=== PATIENT | male | born 1950 | race Two or more races ===

== ENCOUNTER 2021-03-29 12:51 | Emergency (ER) | payer MEDICARE, SELFPAY ==
--- NOTE | 2021-03-29 | ECG_ITS ---
Test Reason : HYPERTENSION Blood Pressure : / mmHG Vent. Rate : 071 BPM Atrial Rate : 071 BPM P-R Int : 132 ms QRS Dur : 070 ms QT Int : 392 ms P-R-T Axes : 085 038 071 degrees QTc Int : 425 ms Normal sinus rhythm Normal ECG When compared with ECG of 27-NOV-2018 01:11, No significant change was found Referred By: Generic ED Physician Electronically Signed By:WEN FERNANDEZ MD
--- NOTE | ~2021-03-29 | XR_ITS ---
EXAMINATION: XR CHEST, 2 VIEWS CLINICAL INFORMATION: Dizziness COMPARISON: 11/27/2018 TECHNIQUE: PA and lateral views of the chest were obtained. FINDINGS: Lungs are hyperexpanded. There is flattening of the hemidiaphragms. Cardiac and mediastinal contours are normal. No consolidation, pneumothorax, or pleural effusion. Pulmonary vasculature appears normal. Mild degenerative spondylosis in the thoracic spine. No acute osseous findings. XR/XR chest 2V IMPRESSION: No acute cardiopulmonary findings.
--- NOTE | ~2021-03-29 | CT_ITS ---
EXAMINATION: CT HEAD WITHOUT CONTRAST CLINICAL INFORMATION: Dizziness COMPARISON: 11/27/2018 TECHNIQUE: Contiguous axial imaging was performed from the skull base to vertex without intravenous administration of contrast. This CT examination was performed using dose optimization techniques as appropriate, variously including the following: *Automated exposure control *Adjustment of mA and/or kV according to patient size (this includes techniques or standardized protocols for targeted exams where dose is matched to indication/reason for exam; i.e. extremities or head) *Use of iterative reconstruction technique DLP: 670 mGy-cm FINDINGS: There is no evidence of acute intracranial hemorrhage or territorial infarction. No abnormal mass effect or midline shift is seen. Su to white matter differentiation is well preserved. No extra-axial fluid collections are identified. Mild enlargement of the ventricles, sulci, and extra-axial CSF spaces is indicative of parenchymal volume loss. There is no abnormal attenuation within the brain parenchyma. The osseous structures and soft tissues are normal. The mastoid air cells and visualized portions of the paranasal sinuses are well aerated. CT/CT head/brain wo con IMPRESSION: No acute intracranial pathology.
[2021-03-29 14:18] VITALS: BP 185/148; PULSE 70; RESP 16; TEMP 36.7; O2SAT 96; BMI 21.6
--- NOTE | 2021-03-29 20:51 | ECG_ITS ---
Test Reason : hypertension Blood Pressure : / mmHG Vent. Rate : 069 BPM Atrial Rate : 069 BPM P-R Int : 138 ms QRS Dur : 072 ms QT Int : 390 ms P-R-T Axes : 082 042 076 degrees QTc Int : 417 ms Normal sinus rhythm Normal ECG When compared with ECG of 29-MAR-2021 15:07, No significant change was found Referred By: Shama Hamilton Electronically Signed By:WEN FERNANDEZ MD
--- NOTE | 2021-03-29 20:53 | ED_ITS ---
HPI - General Adult General Chief complaint: General Medical Stated complaint: high bp, fall Time Seen by Provider: 03/29/21 20:47 Source: patient Mode of arrival: ambulatory Limitations: no limitations History of Present Illness HPI narrative: 71-year-old male with a history of high blood pressure on 25 mg of atenolol daily, COPD, high cholesterol here with reports of elevated blood pressure since Tuesday of last week. Patient tells me he has a longstanding history of high blood pressure and has been on atenolol for several years. He has been taking as prescribed. There has been no changes in his medication dosages. Tells me that he takes his blood pressure every day. Last Tuesday he noticed his blood pressure was running high and it has been running high every day since then. He does feel fatigued and slightly dizzy. He denies any headache, vision changes, vomiting, chest pain, difficulty breathing. Related Data Previous Rx's Medication Instructions Recorded amlodipine 10 mg tablet (Norvasc) 10 mg PO DAILY #30 tab 03/29/21 Allergies Allergy/AdvReac Type Severity Reaction Status Date / Time No Known Allergies Allergy Verified 03/29/21 14:18 [No Known Allergies*] Review of Systems Review of Systems: Yes all other systems are reviewed and are negative Constitutional: Constitutional: Reports no additional constitutional complaints, Denies body ache(s), Denies chills, Reports fatigue, Denies fever(s), Denies headache(s) and Denies weakness Eyes: Eyes: Reports no additional eye complaints and Denies change in vision ENT: Reports system reviewed and no additional complaints, except as documented, Reports dizziness, Denies headache(s), Denies nasal congestion, Denies nasal discharge and Denies neck pain Cardiovascular: Cardiovascular: Reports no additional cardiovascular complaints, Denies chest pain, Denies leg edema and Denies dyspnea Respiratory: Respiratory: Reports no additional respiratory complaints, Denies cough and Denies dyspnea Gastrointestinal: Gastrointestinal: Reports no additional gastrointestinal complaints, Denies abdominal pain, Denies diarrhea, Denies nausea and Denies vomiting Genitourinary: Genitourinary: Denies urinary incontinence Musculoskeletal: Musculoskeletal: Reports no additional musculoskeletal complaints, Denies back pain, Denies arthralgias, Denies joint swelling, Denies neck pain, Denies numbness and Denies tingling Integumentary/Breasts: Skin/Breast: Reports system reviewed and no additional complaints, except as docu and Denies rash Neurologic: Reports system reviewed and no additional complaints, except as documented, Denies Abnormal speech present, Reports dizziness, Denies headache(s), Denies numbness, Denies tingling and Denies weakness Endocrine: Endocrine: Reports fatigue [facility] Past Medical History Attestation statement: The following information was validated with the patient. Source: old records reviewed and nursing notes reviewed Medical History COPD (chronic obstructive pulmonary disease) HTN (hypertension) Hypercholesteremia Social History Social History Patient Tobacco Use Status: Former Tobacco user Smoked in Last 30 Days: No Use of substances other than those prescribed or required for medical reasons: No Advance Directives: No Advance Directives Information Provided: Yes Physical Exam Vital Signs: Vital Signs: Last Vital Signs Temp 97.9 F 03/29/21 22:18 Pulse 82 03/29/21 23:19 Resp 15 03/29/21 22:18 BP 167/78 H 03/29/21 23:19 Pulse Ox 92 03/29/21 22:18 BMI result Body Mass Index 21.6 Const: General: cooperative, healthy appearing, comfortable and no acute distress Orientation/consciousness: patient oriented x3 Limitations: no limitations HENMT: Head: Yes normal to inspection Ears: hearing grossly normal bilaterally and TM's normal bilaterally General nose exam: Normal external nose present Face and sinus: Yes normal facial exam Mouth: Normal oral and palatal mucosa present Throat: Yes posterior oropharynx normal Eyes: General: appearance normal, both eyes and all related structures Pupils: Equal, round and reactive pupils present Neck: Neck: Yes normal visual inspection, Yes full ROM and Yes no lymphadenopathy Chest: Chest palpation & inspection: normal inspection of the chest Resp: Effort & Inspection: normal respiratory effort Auscultation: clear to auscultation bilaterally Cardio: Rate: regular rate Rhythm: regular rhythm Peripheral pulses: P eripheral pulses 2+ throughout GI: Inspection: Yes normal to inspection Palpation (GI): Soft to palpation and nontender Auscultation: normal bowel sounds Back/Spine/Pelvis: Thoracic/Lumbar Spine: thoracic and lumbar spine normal to inspection Skin: General skin exam: no rashes or lesions noted Neuro: General: patient oriented x3, no focal motor deficits and normal sensation to monofilament Cranial nerves: Yes CN's II-XII intact bilaterally, Yes Equal, round and reactive pupils present, Yes Bilaterally intact EOM present, Yes Nystagmus not present, Yes Normal facial strength present and Yes Midline tongue present Cognition (Neuro): normal cognition Speech: No Abnormal speech present Gait exam (Neuro): Normal gait present Motor exam (neuro): 5/5 motor strength present throughout Sensory Exam: Normal double simultaneous stimulation for sensation Coordination: [id number] test normal, [id number] test normal and tandem gait normal Extrem: General: Yes normal to inspection, Yes no pedal edema and Yes no calf tenderness Course Course Course Narrative: 71-year-old male with a history of hypertension on 25 mg of atenolol daily here with reports of high blood pressure noted at home on a home monitor for the last 1 week. Patient complaining of feeling fatigued and slightly dizzy. Normal neuro exam. On arrival patient's blood pressure is 225/105. Check labs, EKG, chest x-ray, po norvasc, NTG paste 2320-blood pressure now 167/78. Patient feeling improved. Labs including trop onin are unremarkable. Chest x-ray, CT head are negative. EKG shows no ischemic changes. Patient is feeling improved with improvement of blood pressure. Will start him on Norvasc home. Reviewed worrisome signs and symptoms of when to return to the emergency department. Comfortable discharge home. Medical Decision Making Medical Records Medical records reviewed: Yes I reviewed the patient's medical records. Lab Data Lab results reviewed: Yes I reviewed the patient's lab results. Result diagrams: 03/29/21 21:27 03/29/21 21:27 Labs: Lab Results 03/29/21 03/29/21 03/29/21 Range/Units 21:27 21:27 21:27 WBC 7.1 (4.8-10.8) X10*3/uL RBC 5.21 (4.60-5.80) X10*6/uL Hgb 16.5 (14.0-18.0) g/dl Hct 49.0 (42.0-52.0) % MCV 94.0 (80.0-98.0) fL MCH 31.7 (27.0-33.0) pg MCHC 33.7 (31.0-36.0) g/dl RDW 12.5 (11.0-16.0) % Plt Count 239 (160-400) X10*3/uL MPV 10.2 (9.4-12.4) fL Immature Gran % (Auto) 0.1 (0.0-0.4) % Neut % (Auto) 55.9 (45-73) % Lymph % (Auto) 18.5 L (20-40) % [place] % (Auto) 13.7 H (2-11) % Eos % (Auto) 11.2 H (0-4) % Baso % (Auto) 0.6 (0-2) % Lymph # (Auto) 1.3 (1.2-4.9) X10*3/uL [place] # (Auto) 1.0 (0.1-1.2) X10*3/uL Eos # (Auto) 0.8 H (0.0-0.4) X10*3/uL Baso # (Auto) 0.0 (0.0-0.2) X10*3/uL Abs Immat Gran (auto) 0.01 (0.00-0.03) X10*3/uL Absolute Neuts (auto) 4.0 (2.0-8.3) x10*3/uL Absolute Nucleated RBC 0.000 (0.0-0.012) X10*3/uL Nucleated RBC % (auto) 0.0 (0.0-0.2) /100WBC Sodium 140 (135-145) mmol/L Potassium 4.3 (3.3-5.1) mmol/L Chloride 102 (96-108) mmol/L Carbon Dioxide 32 H (22-29) mmol/L Anion Gap 10 L (12-20) BUN 11 (9-16) mg/dL Creatinine 0.76 (0.5-1.4) mg/dL Estim Creat Clear Calc 88.6 Estimated GFR > 60 Random Glucose 107 (60-115) mg/dL Calcium 9.6 (8.4-10.2) mg/dL Magnesium 1.7 (1.6-2.6) mg/dL Total Bilirubin 1.2 H (0.0-1.0) mg/dL Direct Bilirubin 0.4 (0.0-0.5) mg/dL AST 28 (5-37) U/L ALT 28 (0-40) U/L Alkaline Phosphatase 64 (39-117) U/L Troponin I High Sens 4.6 (<3.5-35.0) ng/L Total Protein 7.8 (6.5-8.0) g/dL Albumin 4.0 (3.5-5.0) g/dL Urine Color Urine Appearance Urine pH (5.0-8.0) Ur Specific [place] (1.005-1.025) Urine Protein (NEG-TRACE) MG/DL Urine Glucose (UA) (NEG) MG/DL Urine Ketones (NEG) MG/DL Urine Blood (NEG) Urine Nitrite (NEG) Ur Leukocyte Esterase (NEG) 03/29/21 Range/Units 22:59 WBC (4.8-10.8) X10*3/uL RBC (4.60-5.80) X10*6/uL Hgb (14.0-18.0) g/dl Hct (42.0-52.0) % MCV (80.0-98.0) fL MCH (27.0-33.0) pg MCHC (31.0-36.0) g/dl RDW (11.0-16.0) % Plt Count (160-400) X10*3/uL MPV (9.4-12.4) fL Immature Gran % (Auto) (0.0-0.4) % Neut % (Auto) (45-73) % Lymph % (Auto) (20-40) % [place] % (Auto) (2-11) % Eos % (Auto) (0-4) % Baso % (Auto) (0-2) % Lymph # (Auto) (1.2-4.9) X10*3/uL [place] # (Auto) (0.1-1.2) X10*3/uL Eos # (Auto) (0.0-0.4) X10*3/uL Baso # (Auto) (0.0-0.2) X10*3/uL Abs Immat Gran (auto) (0.00-0.03) X10*3/uL Absolute Neuts (auto) (2.0-8.3) x10*3/uL Absolute Nucleated RBC (0.0-0.012) X10*3/uL Nucleated RBC % (auto) (0.0-0.2) /100WBC Sodium (135-145) mmol/L Potassium (3.3-5.1) mmol/L Chloride (96-108) mmol/L Carbon Dioxide (22-29) mmol/L Anion Gap (12-20) BUN (9-16) mg/dL Creatinine (0.5-1.4) mg/dL Estim Creat Clear Calc Estimated GFR Random Glucose (60-115) mg/dL Calcium (8.4-10.2) mg/dL Magnesium (1.6-2.6) mg/dL Total Bilirubin (0.0-1.0) mg/dL Direct Bilirubin (0.0-0.5) mg/dL AST (5-37) U/L ALT (0-40) U/L Alkaline Phosphatase (39-117) U/L Troponin I High Sens (<3.5-35.0) ng/L Total Protein (6.5-8.0) g/dL Albumin (3.5-5.0) g/dL Urine Color YELLOW Urine Appearance CLEAR Urine pH 6.0 (5.0-8.0) Ur Specific [place] >= 1.030 H (1.005-1.025) Urine Protein NEG (NEG-TRACE) MG/DL Urine Glucose (UA) NEG (NEG) MG/DL Urine Ketones NEG (NEG) MG/DL Urine Blood NEG (NEG) Urine Nitrite NEG (NEG) Ur Leukocyte Esterase NEG (NEG) Imaging Data Chest x-ray: Attestation: I personally reviewed and interpreted this imaging study as follows: Radiologist's impression: [address] [address] XRay Report Signed Patient: Thony Koroma MR#: [id number] : 1950 Acct:[id number] Age/Sex: 71 / M ADM Date: 03/29/21 Loc: .ED Attending Dr: Ordering Physician: Shama Hamilton NP Date of Service: 03/29/21 Procedure(s): XR chest 2V Accession Number(s): [id number] cc: Shama Hamilton NP~ EXAMINATION: XR CHEST, 2 VIEWS CLINICAL INFORMATION: Dizziness COMPARISON: 11/27/2018 TECHNIQUE: PA and lateral views of the chest were obtained. FINDINGS: Lungs are hyperexpanded. There is flattening of the hemidiaphragms. Cardiac and mediastinal contours are normal. No consolidation, pneumothorax, or pleural effusion. Pulmonary vasculature appears normal. Mild degenerative spondylosis in the thoracic spine. No acute osseous findings. XR/XR chest 2V IMPRESSION: No acute cardiopulmonary findings. CT scan - head: Attestation: I personally reviewed and interpreted this imaging study as follows: Radiologist's impression: [address] [address] [address] Scan Report Signed Patient: Thony Koroma MR#: [id number] : 1950 Acct:[id number] Age/Sex: 71 / M ADM Date: 03/29/21 Loc: HO.ED Attending Dr: Ordering Physician: Shama Hamilton NP Date of Service: 03/29/21 Procedure(s): CT head/brain wo con Accession Number(s): [id number] cc: Shama Hamilton NP~ EXAMINATION: CT HEAD WITHOUT CONTRAST CLINICAL INFORMATION: Dizziness? COMPARISON: 11/27/2018 TECHNIQUE: Contiguous axial imaging was performed from the skull base to vertex without intravenous administration of contrast. This CT examination was performed using dose optimization techniques as appropriate, variously including the following: *Automated exposure control *Adjustment of mA and/or kV according to patient size (this includes techniques or standardized protocols for targeted exams where dose is matched to indication/reason for exam; i.e. extremities or head) *Use of iterative reconstruction technique DLP: 670 mGy-cm FINDINGS: There is no evidence of acute intracranial hemorrhage or territorial infarction. No abnormal mass effect or midline shift is seen. Su to white matter differentiation is well preserved. No extra-axial fluid collections are identified. Mild enlargement of the ventricles, sulci, and extra-axial CSF spaces is indicative of parenchymal volume loss. There is no abnormal attenuation within the brain parenchyma. The osseous structures and soft tissues are normal. The mastoid air cells and visualized portions of the paranasal sinuses are well aerated. ? CT/CT head/brain wo con IMPRESSION: No acute intracranial pathology. ECG Data Attestation: I personally reviewed and interpreted this ECG as follows: Interpretation: Normal sinus rhythm the rate of 69, normal CT, normal QRS, normal QT Discharge Plan Discharge Clinical Impression: Hypertension Patient Disposition: Home, Self-Care Instructions: Hypertension (ED) Additional Instructions: Start your new blood pressure medication tomorrow. Still take your atenolol Follow-up with primary care doctor Prescriptions: New amlodipine [Norvasc] 10 mg tablet 10 mg PO DAILY Qty: 30 RF: 0 Referrals: Valeriano Brewer MD [Primary Care Provider] - 2 days Interventions: ED Discharge Assessment Last Done: 03/29/21 23:54
[2021-03-29 21:21] VITALS: BP 205/98; PULSE 76; RESP 14; TEMP 36.8; O2SAT 96
[2021-03-29 21:31] LABS: MANUAL DIFF FLAG NO
[2021-03-29 21:33] VITALS: BP 205/98; PULSE 71
[2021-03-29] MEDS: amLODIPine Besylate 10 MG TABLET PO (21:33)
[2021-03-29] MEDS: Nitroglycerin 2 % Oint 1 GM Packet 1 INCH TRANSDERMA (21:34)
[2021-03-29 21:35] LABS: Basophils Percent Auto 0.6 % (0-2); Eosinophils Absolute Auto 0.8 X10*3/uL (0.0-0.4); Eosinophils Percent Auto 11.2 % (0-4); Hemoglobin 16.5 g/dl (14.0-18.0); Imm Gran Abs Auto 0.01 X10*3/uL (0.00-0.03); Imm Gran Pct Auto 0.1 % (0.0-0.4); Lymphocytes Absolute Auto 1.3 X10*3/uL (1.2-4.9); Lymphocytes Percent Auto 18.5 % (20-40); Mean Corpuscular HGB Conc 33.7 g/dl (31.0-36.0); Mean Corpuscular Hemoglobin 31.7 pg (27.0-33.0); Mean Platelet Volume 10.2 fL (9.4-12.4); Monocytes Percent Auto 13.7 % (2-11); Neutrophils Percent Auto 55.9 % (45-73); Platelet Count 239 X10*3/uL (160-400); Red Blood Count 5.21 X10*6/uL (4.60-5.80); Red Cell Distribution Width 12.5 % (11.0-16.0); White Blood Count 7.1 X10*3/uL (4.8-10.8)
[2021-03-29 21:53] LABS: Alanine Aminotransferase 28 U/L (0-40); Alkaline Phosphatase 64 U/L (39-117); Anion Gap 10 (12-20); Aspartate Amino Transferase 28 U/L (5-37); Bilirubin Direct 0.4 mg/dL (0.0-0.5); Bilirubin Total 1.2 mg/dL (0.0-1.0); Blood Urea Nitrogen 11 mg/dL (9-16); Calcium 9.6 mg/dL (8.4-10.2); Carbon Dioxide 32 mmol/L (22-29); Chloride 102 mmol/L (96-108); Creatinine Clr Calc Pharmacy 88.6; Estimated Glomerular Filt Rate > 60; Glucose Random 107 mg/dL (60-115); Magnesium 1.7 mg/dL (1.6-2.6); Potassium 4.3 mmol/L (3.3-5.1); Sodium 140 mmol/L (135-145); Total Protein 7.8 g/dL (6.5-8.0)
[2021-03-29 21:54] LABS: Troponin-I High Sensitivity 4.6 ng/L (<3.5-35.0)
[2021-03-29 22:18] VITALS: BP 174/97; PULSE 75; RESP 15; TEMP 36.6; O2SAT 92
[2021-03-29 23:05] LABS: Appearance Urine CLEAR; Color Urine YELLOW; Glucose Urine UA NEG (NEG); Leukocyte Esterase Urine NEG (NEG); Nitrite Urine NEG (NEG); Specific Gravity - Urine >= 1.030 (1.005-1.025); Urine Blood NEG (NEG); Urine Ketones NEG (NEG); Urine Protein NEG (NEG-TRACE)
[2021-03-29 23:19] VITALS: BP 167/78; PULSE 82
== END 2021-03-30 00:07 | disposition home or self-care (01) ==
PROVIDERS: Nurse Practitioner Family; Emergency Provider Internal Medicine; PCP Internal Medicine
DX: I10 Essential (primary) hypertension (principal); R42 Dizziness and giddiness; J44.9 Chronic obstructive pulmonary disease, unspecified; Z79.899 Other long term (current) drug therapy
CPT/HCPCS: 36415; 70450; 71046; 80048; 80076; 81003; 83735; 84484; 85025; 93005; 99284

== ENCOUNTER → 2021-06-18 14:30 | Outpatient (BNVA) | payer MEDICARE, SELFPAY | PROVIDERS: PCP Internal Medicine Geriatric Medicine; Referring Provider Internal Medicine Geriatric Medicine; Visit Provider Surgery | DX: K40.90 Unilateral inguinal hernia, without obstruction or gangrene, not specified as recurrent (principal) | CPT/HCPCS: 99202 ==

== ENCOUNTER 2021-08-07 07:35 | Day surgery (SDC) | payer MEDICARE, SELFPAY ==
--- NOTE | 2021-08-06 10:49 | HO.ANESPROP2 ---
Documented by User: Susan Salinas NP 08/06/21 10:50 HPI - Anesthesia Eval Consult details Narrative: 71yo M for Right Hernia Repair Inguinal PMFSH Active Problems Active Problems: All Active Problems (Updated 06/18/21 @ 14:57 by Perry Linton MD) Right inguinal hernia (Acute) Past Medical History Medical History (Updated 06/18/21 @ 14:57 by Perry Linton MD) COPD (chronic obstructive pulmonary disease) HTN (hypertension) Hypercholesteremia Right inguinal hernia Surgical History Surgical History History of cataract surgery History of colon surgery History of hip surgery Social History Social History Patient Tobacco Use Status: Former Tobacco user Quit Date: 2009 Tobacco use type: Cigarette Smoked in Last 30 Days: No Use of substances other than those prescribed or required for medical reasons: No Are you DNR?: No Advance Directives: No Advance Directives Information Provided: Yes Meds Allergies Allergy/AdvReac Type Severity Reaction Status Date / Time No Known Allergies Allergy Verified 08/07/21 08:33 [No Known Allergies*] Home Medications Medication Instructions Recorded Confirmed Last Taken Type atenolol 25 mg tablet 25 mg PO DAILY 06/18/21 06/18/21 08/07/21 07:00 History budesonide-formoterol HFA 80 INHALATION 06/18/21 06/18/21 08/07/21 07:00 History mcg-4.5 mcg/actuation aerosol inhaler (Symbicort) clotrimazole 1 % topical cream appl TOPICAL BID 06/18/21 06/18/21 Unknown History latanoprost 0.005 % eye drops 0 drp OPHTHALMIC (EYE) 06/18/21 06/18/21 Unknown History naproxen 500 mg tablet 500 mg PO BID 06/18/21 06/18/21 Unknown History umeclidinium 62.5 mcg/actuation 1 inh INHALATION DAILY 06/18/21 06/18/21 Unknown History blister powder for inhalation (Incruse Ellipta) Pepcid 08/07/21 08/07/21 08/07/21 07:00 History Exam Exam Date and Time: August 06, 2021 1049 Height,Weight and Vital Signs: Weight 67.132 kg Pertinent Lab Results Pertinent Lab Results: Laboratory Tests 03/29/21 03/29/21 21:27 21:27 WBC 7.1 Hgb 16.5 Hct 49.0 Plt Count 239 Sodium 140 Potassium 4.3 Chloride 102 Carbon Dioxide 32 H BUN 11 Creatinine 0.76 Narrative Narrative: EKG 03/2021 Vent. Rate : 069 BPM ? ? Atrial Rate : 069 BPM ?? P-R Int : 138 ms? QRS Dur : 072 ms ? ? QT Int : 390 ms ? ? ? P-R-T Axes : 082 042 076 degrees ?? QTc Int : 417 ms ? Normal sinus rhythm Normal ECG When compared with ECG of 29-MAR-2021 15:07, No significant change was found Assessment and Plan Assessment Anesthesia Assessment: Chart Reviewed Documented by User: Destiney Hernandez MD 08/07/21 08:49 [facility] Past Medical History Medical History (Updated 06/18/21 @ 14:57 by Perry Linton MD) COPD (chronic obstructive pulmonary disease) HTN (hypertension) Hypercholesteremia Right inguinal hernia Family History Family history of problems with anesthesia: No Surgical History Surgical History History of cataract surgery History of colon surgery History of hip surgery History of Problems with Anesthesia: No Social History Social History Patient Tobacco Use Status: Former Tobacco user Quit Date: 2009 Tobacco use type: Cigarette Smoked in Last 30 Days: No Use of substances other than those prescribed or required for medical reasons: No Are you DNR?: No Advance Directives: No Advance Directives Information Provided: Yes Meds Allergies Allergy/AdvReac Type Severity Reaction Status Date / Time No Known Allergies Allergy Verified 08/07/21 08:33 [No Known Allergies*] Home Medications Medication Instructions Recorded Confirmed Last Taken Type atenolol 25 mg tablet 25 mg PO DAILY 06/18/21 06/18/21 08/07/21 07:00 History budesonide-formoterol HFA 80 INHALATION 06/18/21 06/18/21 08/07/21 07:00 History mcg-4.5 mcg/actuation aerosol inhaler (Symbicort) clotrimazole 1 % topical cream appl TOPICAL BID 06/18/21 06/18/21 Unknown History latanoprost 0.005 % eye drops 0 drp OPHTHALMIC (EYE) 06/18/21 06/18/21 Unknown History naproxen 500 mg tablet 500 mg PO BID 06/18/21 06/18/21 Unknown History umeclidinium 62.5 mcg/actuation 1 inh INHALATION DAILY 06/18/21 06/18/21 Unknown History blister powder for inhalation (Incruse Ellipta) Pepcid 08/07/21 08/07/21 08/07/21 07:00 History Exam Height,Weight and Vital Signs: Height 5 ft 11 in Weight 68.039 kg Airway Mallampati Class: II TM Dist: >3cm Neck ROM: Full Loose/Missing/Broken Teeth: Yes (Broken back right, some missing) Heart: RRR Lungs: CTAB. No wheezes Assessment and Plan Assessment Anesthesia Assessment: Anesthesia Plan Discussed Final Anesthetic Review Family History of Problems with Anesthesia: No History of Problems with Anesthesia: No NPO: Yes ASA Class: II Final Preanesthetic Review: No Changes in Pt Med Stat, Meds/Allgs Chart Reviewed, Consent Obtained/Reviewed and Anes Risks/Benef Reviewed Patient Risk: Low Procedure Risk: Low Assessment/Block/Sedation in SS: Assess/Block/Sedation-SS Anesthetic Plan Anesthetic Plan: MAC: Disposition: Standard PACU
[2021-08-07] VITALS (9 sets, daily range): BP systolic 130–172; BP diastolic 56–87; PULSE 54–73; RESP 16–18; TEMP 36.2–36.8; O2SAT 96–100; BMI 20.9
[2021-08-07] MEDS: Lactated Ringers 1,000 ML 100 ML IVCONT (08:47)
--- NOTE | 2021-08-07 09:06 | MHC.SHP ---
Pre-Procedural Eval Section A Date of Service: 08/07/21 Section B Chief Complaint: Unilateral inguinal hernia, Details of Present Illness: has had the reducible right inguinal hernia more than 2 years Relevant Family History (Specify if Yes): No Relevant Social History: Tobacco Use Present Medications: see Short Stay Collaborative assessment Medical History: Significant History ( ex-smoker, hypertension) History of Previous Operations: No relevant previous surgery Allergies: Allergies Allergy/AdvReac Type Severity Reaction Status Date / Time No Known Allergies Allergy Verified 08/07/21 08:33 [No Known Allergies*] Review of Systems Sugical H&P ROS: Negative: Constitution, Cardiovascular, Respiratory, Neurological, Psychiatric, Hem-Onc, Allergic/Immunologic, Gastrointestinal, Genitourinary, Musculoskeletal, Integumentary, Endocrine and Eyes/Ears/Nose/Throat Exam Surgical H&P Exam: Normal: HEENT, Normal: Heart, Normal: Lungs, Normal: Extremities, Normal: Skin and Normal: Neurological and Significant Findings: Abdomen ( reducible right inguinal hernia) Plan Diagnosis/Plan: Unchanged I have reviewed the history and physical and performed a pertinent physical examination on my patient. No changes have occurred unless specified.
--- NOTE | 2021-08-07 10:07 | P.OP_ITS ---
Operative Note Operative Note Date of Service: 08/07/21 Narrative: Preop diagnosis: Inguinal hernia Postop diagnosis: Right inguinal hernia, direct Procedure: Repair of right inguinal hernia with mesh and plug Surgeon: Perry Linton MD insurance claims assistant: LAZARO Mckenzie The patient is a 71-year-old male with a reducible mass in the right groin consistent with a right inguinal hernia. He understood the technique of repair with mesh. He was aware of the risks, benefits, and alternatives He was brought to the operating room. he was placed supine under general anesthesia via laryngeal mask airway. the right groin was prepped and draped in the usual sterile fashion. A surgical time-out was done. The patient received cefazolin 2 g IV preoperatively I infiltrated the planned line of incision with lidocaine 1%. I made a short incision on the skin along an imaginary line from the anterior superior iliac spine to the pubic ramus using a blade 15. This was carried down with electrocautery through the full-thickness of the skin subcutaneous fat down to the fascia. I bluntly dissected the external oblique aponeurosis until was able to clearly define the external ring. Made an incision on the aponeurosis overlying the ring using blade 15 and this was extended inferomedially to connect with the external ring itself using an open tipped pair of scissors. I applied hemostats at the edges of the divided aponeurosis. I bluntly dissected the underside of the aponeurosis to create a pocket for the mesh. I bluntly dissected the spermatic cord and its contents until was able to pass a Marlene drain around this. This Ball Ground drain was used for traction. Identified the vas deferens and the accompanying vessels. I was able to identify the sac and this was easily from the rest of the cord contents. The sac was actually through the floor of the canal so this was a direct hernia. I reinforced defect with a large-sized Prolene plug. The plug was secured Prolene 2 sutures to the shelving edge of the inguinal meant laterally and the area of leak medially and superiorly using Prolene 2 sutures to the inner leaves of the plug. I reinforced the floor of the canal with a keyhole mesh. The tails of the mesh were passed around the cord at the level of the internal ring and were secured together with Prolene 2 sutures. I then proceeded to flattened the mesh on the floor of the canal. This was secured with Prolene 2 sutures as well to the shelving edge of the inguinal and laterally, internal oblique superiorly and medially as well as the pubic ramus inferomedially. We observed for hemostasis. Once hemostasis was ensured, I proceeded to then apply viscus meloxicam/bupivacaine to the underside of the aponeurosis. I closed the aponeurosis with a running Dexon 2-0 stitch to re-create the external ring. I then more viscous meloxicam /bupivacaine above the closed aponeurosis. I reapposed the cutaneous layer with Dexon 3-0 interrupted sutures. Skin closure was achieved with Dexon 4-0 subcuticular running stitch. The area was infiltrated with Marcaine 0.5% for postop analgesia. Steri-Strips and dressings were applied. The procedure was completed The patient tolerated procedure well. There were no complication noted. Initial and final counts of sponges and instruments were correct. Estimated blood loss was less than 5 cc The patient was extubated without difficulty and transferred to the [facility] with stable vital signs.
[2021-08-07] MEDS: Acetaminophen 325 MG TABLET 650 MG PO (10:58)
== END 2021-08-07 12:05 | disposition home or self-care (01) ==
PROVIDERS: PCP Internal Medicine; Visit Provider Surgery
PROC: (CPT 49505; principal; 2021-08-07 09:20)
DX: K40.90 Unilateral inguinal hernia, without obstruction or gangrene, not specified as recurrent (principal); I10 Essential (primary) hypertension; J44.9 Chronic obstructive pulmonary disease, unspecified; E78.00 Pure hypercholesterolemia, unspecified; Z79.899 Other long term (current) drug therapy; Z87.891 Personal history of nicotine dependence
CPT/HCPCS: 49505; C1781; C9088; C9399; J0690; J1100; J2370; J2405; J3010

== ENCOUNTER → 2021-08-19 11:05 | Outpatient (BNVA) | payer MEDICARE, SELFPAY | PROVIDERS: PCP Internal Medicine Geriatric Medicine; Referring Provider Internal Medicine Geriatric Medicine; Visit Provider Surgery | DX: Z48.815 Encounter for surgical aftercare following surgery on the digestive system (principal); Z87.19 Personal history of other diseases of the digestive system | CPT/HCPCS: 99212 ==

== ENCOUNTER 2022-03-04 11:26 | Emergency (ER) | payer MEDICARE, SELFPAY ==
--- NOTE | ~2022-03-04 | XR_ITS ---
EXAMINATION: XR CHEST CLINICAL INFORMATION: Shortness of breath COMPARISON: 03/29/2021 TECHNIQUE: Frontal view of the chest was obtained. FINDINGS: Again seen is marked hyperexpansion of the lungs compatible with COPD. Heart size normal. No infiltrates effusions or lung masses are seen. Prominent interstitial markings at the lung bases I suspect represents some bronchiectasis. No focal consolidations lung masses or effusions. XR/XR chest 1V IMPRESSION: COPD. No acute intrathoracic disease.
[2022-03-04 11:32] VITALS: BP 172/82; PULSE 104; O2SAT 88
--- NOTE | 2022-03-04 11:32 | ED.GENADULT ---
HPI - General Adult General Chief complaint: Dyspnea Stated complaint: sob per ems Time Seen by Provider: 03/04/22 11:32 Source: patient, family (daughter) and EMS Mode of arrival: EMS Limitations: no limitations History of Present Illness HPI narrative: Patient is a 72 year old assigned male at with a history of COPD presenting to the emergency department today with a persistent cough and mild SOB. Patient states that over the last week he has had worsening shortness of breath and a cough. Patient denies any dizziness, lightheadedness, abdominal pain, nausea, vomiting, fever, chills, blurry vision, double vision, loss of vision, chest pain, back pain, night sweats, pain with urination, increased urinary frequency, increased urinary urgency, blood in his urine or stool, syncope or a near syncopal episode, recent trauma or falls, bowel incontinence, bladder incontinence, bowel retention, bladder retention, or any other complaints at this time. Onset (ago): week(s) (1) Severity: mild Severity scale (1-10): 3 Relieving factors: none Exacerbating factors: none Associated symptoms: cough and shortness of breath Treatments prior to arrival: none Related Data Home Medications Medication Instructions Recorded Confirmed atenolol 25 mg tablet 25 mg PO DAILY 06/18/21 06/18/21 budesonide-formoterol HFA 80 inhalation 06/18/21 06/18/21 mcg-4.5 mcg/actuation aerosol inhaler (Symbicort) clotrimazole 1 % topical cream appl topical BID 06/18/21 06/18/21 latanoprost 0.005 % eye drops 0 drp ophthalmic (eye) 06/18/21 06/18/21 umeclidinium 62.5 mcg/actuation 1 inh inhalation DAILY 06/18/21 06/18/21 blister powder for inhalation (Incruse Ellipta) Pepcid 08/07/21 08/07/21 Previous Rx's Medication Instructions Recorded amlodipine 10 mg tablet (Norvasc) 10 mg PO DAILY #30 tabs 03/29/21 oxycodone-acetaminophen 5 mg-325 1 tab PO Q4-6H PRN pain, severe 08/07/21 mg tablet (Percocet) #30 tabs doxycycline hyclate 100 mg tablet 100 mg PO BID 7 days #14 tabs 03/04/22 prednisone 20 mg tablet 20 mg PO DAILY 7 days #7 tabs 03/04/22 Allergies Allergy/AdvReac Type Severity Reaction Status Date / Time No Known Allergies Allergy Verified 08/19/21 11:22 [No Known Allergies*] Review of Systems Constitutional: Constitutional: Reports no additional constitutional complaints, Denies chills, Denies fever(s) and Denies night sweats Eyes: Eyes: Reports no additional eye complaints, Denies blurry vision, Denies change in vision, Denies diplopia, Denies eye discharge, Denies loss of vision and Denies eye pain ENT: Denies dizziness Cardiovascular: Cardiovascular: Reports no additional cardiovascular complaints, Denies chest pain, Denies lightheadedness, Denies Loss of Consciousness and Reports dyspnea Respiratory: Respiratory: Reports no additional respiratory complaints, Reports cough and Reports dyspnea Gastrointestinal: Gastrointestinal: Reports no additional gastrointestinal complaints, Denies abdominal pain, Denies melena, Denies hematochezia, Denies change in bowel habits and Denies change in stool character Genitourinary: Genitourinary: Reports no additional male genitourinary complaints, Denies hematuria, Denies oliguria, Denies difficulty urinating, Denies dysuria, Denies urinary frequency, Denies urinary hesitancy, Denies urinary incontinence and Denies urinary urgency Musculoskeletal: Musculoskeletal: Reports no additional musculoskeletal complaints, Denies numbness and Denies tingling Neurologic: Denies dizziness, Denies loss of vision, Denies numbness and Denies tingling Psychiatric: Psychiatric: Reports no additional psychiatric complaints Endocrine: Endocrine: Reports no additional endocrine complaints Hematologic/Lymphatic: Hematologic/Lymphatic: Reports no additional hematologic/lymphatic complaints Allergic/Immunologic: Allergic/Immunologic: Reports no additional allergic/immunologic complaints [facility] Past Medical History Attestation statement: The following information was validated with the patient. Source: old records reviewed, obtained from family (patient's daughter) and nursing notes reviewed Medical History COPD (chronic obstructive pulmonary disease) HTN (hypertension) Hypercholesteremia Right inguinal hernia Surgical History History of cataract surgery History of colon surgery History of hip surgery History of right inguinal hernia repair Social History Social History Alcohol intake: current Alcohol intake frequency: holidays/special occasions only Patient Tobacco Use Status: Former Tobacco user Quit Date: 2009 Tobacco use type: Cigarette Smoked in Last 30 Days: No Use of substances other than those prescribed or required for medical reasons: No Advance Directives: No Advance Directives Information Provided: Yes Physical Exam ED Vital Signs: Vital Signs - 24 hr 03/04/22 11:37 03/04/22 12:35 03/04/22 14:00 Temperature 98.2 F 98.7 F 98.7 F Pulse Rate 96 88 86 Respiratory Rate 16 20 16 Blood Pressure 143/82 H 127/57 L 124/73 Pulse Oximetry 96 91 L 97 Oxygen Delivery Method Room Air Nasal Cannula Room Air Oxygen Flow Rate 2 BMI result Body Mass Index 20.9 Const General: cooperative, no acute distress, alert and awake Nutritional Appearance: well nourished Orientation/consciousness: patient oriented x3 Limitations: no limitations HENMT Head: Yes normal to inspection and Yes atraumatic Ears: hearing grossly normal bilaterally and external ears normal General nose exam: Normal external nose present, no nasal discharge noted and no epistaxis Face and sinus: Yes normal facial exam, No abrasion and No laceration Mouth: Normal oral and palatal mucosa present, no drooling and no muffled voice Eyes General: appearance normal, both eyes and all related structures Periorbital: periorbital findings normal Eyelids: Yes eyelids normal Conjunctivae: conjunctivae normal Pupils: Equal, round and reactive pupils present EOM: EOMs intact bilaterally Neck Neck: Yes normal visual inspection, Yes full ROM and Yes no lymphadenopathy Chest Chest palpation & inspection: normal inspection of the chest Resp Effort & Inspection: normal respiratory effort and able to speak in complete sentences Auscultation: clear to auscultation bilaterally Cardio Rate: regular rate Rhythm: regular rhythm GI Inspection: Yes normal to inspection Neuro General: patient oriented x3 and moves all extremities Cranial nerves: Yes Equal, round and reactive pupils present Cognition (Neuro): normal cognition Motor exam (neuro): 5/5 motor strength present throughout Sensory Exam: Normal double simultaneous stimulation for sensation Coordination: [id number]-gimi test normal Extrem General: Yes normal to inspection, Yes full ROM and Yes capillary refill normal Psych Appearance: grossly normal Mental Status: mental status grossly normal Affect: normal affect Attitude: cooperative Thought process: Normal thought process present Thought content: Normal thought content present Insight: Good insight present (Psych) Medications Administered Discontinued Medications Generic Name Dose Route Start Last Admin Trade Name Jimenez PRN Reason Stop Dose Admin Albuterol Sulfate 5 mg/ 0 mg 03/04/22 13:02 03/04/22 13:29 Albuterol/Ipratropium 3 ml INHALE 03/04/22 13:03 Not Given ONCE ONE Methylprednisolone Sodium Succinate 60 mg 03/04/22 13:02 03/04/22 14:13 Methylprednisolone Sod Succ 125 Mg/2 Ml Vial IVPUSH 03/04/22 13:03 60 mg ONCE ONE Administration Medical Decision Making Medical Decision Making [facility] Narrative: Patient is a 72 year old assigned male at with a history of COPD presenting to the emergency department today with a cough and mild shortness of breath. Patient's physical exam was unremarkable. Patient was not hypoxic. Patient's blood work showed an elevated troponin of 160.9 with a repeat of 169.4 (<50% delta). Patient's EKG was unremarkable. Patient's chest x-ray showed no acute process. Patient's COVID-19 test was positive. I explained my physical exam findings as well as all test results to the patient and the patient's daughter. I answered all questions asked by the patient and the patient's daughter. Patient received a breathing treatment and solu-medrol which he stated helped his symptoms significantly. I stressed the importance of the patient taking his medication as prescribed. I stressed the importance of the patient following up with his primary care provider. I stressed the importance of the patient returning to the emergency department immediately if his symptoms were to worsen or if he were to develop any dizziness, shortness of breath, difficulty breathing, chest pain, blurry vision, loss of vision, nausea, vomiting, abdominal pain, fever, chills, back pain, or any other complaints. Patient and the patient's daughter verbalized agreement and understanding with this treatment plan and discharge. Differential Diagnoses: Differential diagnosis Differential Diagnosis: cough, COVID-19, influenza, RSV Lab Attestation: I reviewed the patient's lab results. Independent interpretation of EKG, rhythm strip, radiology study: Independent interp EKG,rhythm strip, radiology study I performed an independent interpretation of the: EKG Vent. Rate: 096 BPM ? ? Atrial Rate: 096 BPM P-R Int: 130 ms? QRS Dur: 074 ms QT Int: 336 ms ? ? ? P-R-T Axes: 083 043 077 degrees QTc Int: 424 ms ? Sinus rhythm with Premature atrial complexes Otherwise normal ECG When compared with ECG of 29-MAR-2021 22:14, Premature atrial complexes are now Present DD/ [id number] Discussion of test interpretation with radiology: Discussion of test interpretation with radiology This interpretation was not discussed with the radiologist however, the radiologist's impression is listed here, per their written report. EXAMINATION: XR CHEST CLINICAL INFORMATION: Shortness of breath COMPARISON: 03/29/2021 TECHNIQUE: Frontal view of the chest was obtained. FINDINGS: Again seen is marked hyperexpansion of the lungs compatible with COPD. Heart size normal. No infiltrates effusions or lung masses are seen. Prominent interstitial markings at the lung bases I suspect represents some bronchiectasis. No focal consolidations lung masses or effusions. XR/XR chest 1V IMPRESSION: COPD. No acute intrathoracic disease. Dictated By: Eliel Parr MD Signed By: Electronically signed by Eliel Parr MD 03/04/22 1327 Independent historian (e.g., spouse, EMS, friend): Independent historian (e.g., spouse, EMS, friend) Clinical information obtained from an independent historian. History obtained from or confirmed by: EMS and Other (daughter) Discharge Plan Discharge Clinical Impression: COVID-19 Patient Disposition: Home, Self-Care Instructions: COVID-19 (Coronavirus Disease 2019) (ED) Additional Instructions: Follow up with your primary care provider. Return to the emergency department immediately if your symptoms worsen or if you develop any dizziness, shortness of breath, difficulty breathing, chest pain, blurry vision, loss of vision, nausea, vomiting, abdominal pain, fever, chills, back pain, or any other complaints. Prescriptions: New prednisone 20 mg tablet 20 mg PO DAILY 7 Days Qty: 7 0RF doxycycline hyclate 100 mg tablet 100 mg PO BID 7 Days Qty: 14 0RF No Action Pepcid oxycodone-acetaminophen [Percocet] 5-325 mg tablet 1 tab PO Q4-6H PRN (Reason: pain, severe) Qty: 30 0RF amlodipine [Norvasc] 10 mg tablet 10 mg PO DAILY Qty: 30 0RF atenolol 25 mg tablet 25 mg PO DAILY budesonide-formoterol [Symbicort] 80-4.5 mcg/actuation HFA aerosol inhaler inhalation Incruse Ellipta 62.5 mcg/actuation blister with device 1 inh inhalation DAILY latanoprost 0.005 % drops 0 drp ophthalmic (eye) clotrimazole 1 % cream topical BID Referrals: Name,MD Subhash [Primary Care Provider] - Print Language: Uzbek
[2022-03-04 11:37] VITALS: BP 143/82; PULSE 96; RESP 16; TEMP 36.8; O2SAT 96; BMI 20.9
--- NOTE | 2022-03-04 11:41 | ECG_ITS ---
Test Reason : Weakness Blood Pressure : / mmHG Vent. Rate : 096 BPM Atrial Rate : 096 BPM P-R Int : 130 ms QRS Dur : 074 ms QT Int : 336 ms P-R-T Axes : 083 043 077 degrees QTc Int : 424 ms Sinus rhythm with Premature atrial complexes Otherwise normal ECG When compared with ECG of 29-MAR-2021 22:14, Premature atrial complexes are now Present Referred By: Cathy Cline Electronically Signed By:WEN FERNANDEZ MD
[2022-03-04 12:31] LABS: MANUAL DIFF FLAG NO
[2022-03-04 12:35] VITALS: BP 127/57; PULSE 88; RESP 20; TEMP 37.1; O2SAT 91
[2022-03-04 12:36] LABS: Basophils Percent Auto 0.4 % (0-2); Eosinophils Absolute Auto 0.1 X10*3/uL (0.0-0.4); Eosinophils Percent Auto 0.6 % (0-4); Hematocrit 44.2 % (42.0-52.0); Imm Gran Abs Auto 0.03 X10*3/uL (0.00-0.03); Imm Gran Pct Auto 0.3 % (0.0-0.4); Lymphocytes Absolute Auto 0.5 X10*3/uL (1.2-4.9); Lymphocytes Percent Auto 5.3 % (20-40); Mean Corpuscular HGB Conc 33.9 g/dl (31.0-36.0); Mean Corpuscular Hemoglobin 31.5 pg (27.0-33.0); Mean Corpuscular Volume 92.9 fL (80.0-98.0); Mean Platelet Volume 10.3 fL (9.4-12.4); Monocytes Absolute Auto 1.4 X10*3/uL (0.1-1.2); Monocytes Percent Auto 14.2 % (2-11); Neutrophils Percent Auto 79.2 % (45-73); Platelet Count 260 X10*3/uL (160-400); Red Blood Count 4.76 X10*6/uL (4.60-5.80); White Blood Count 10.1 X10*3/uL (4.8-10.8)
[2022-03-04 12:47] LABS: Alanine Aminotransferase 11 U/L (0-40); Albumin Level 3.7 g/dL (3.5-5.0); Alkaline Phosphatase 74 U/L (39-117); Anion Gap 10 (12-20); Aspartate Amino Transferase 15 U/L (5-37); Blood Urea Nitrogen 11 mg/dL (9-16); Calcium 9.7 mg/dL (8.4-10.2); Carbon Dioxide 32 mmol/L (22-29); Chloride 99 mmol/L (96-108); Creatinine Clr Calc Pharmacy 86.8; Estimated Glomerular Filt Rate > 60; Glucose Random 119 mg/dL (60-115); Magnesium 1.5 mg/dL (1.6-2.6); Potassium 4.1 mmol/L (3.3-5.1); Sodium 137 mmol/L (135-145); Total Protein 6.9 g/dL (6.5-8.0)
[2022-03-04 13:08] LABS: Troponin-I High Sensitivity 160.9 ng/L (<3.5-35.0)
[2022-03-04 13:12] LABS: Influenza A PCR NEGATIVE (Negative); Influenza B PCR NEGATIVE (Negative); Resp Syncy Virus RNA Qual PCR NEGATIVE (Negative); SARS COV2 PCR INHOUSE POSITIVE (Negative)
[2022-03-04 14:00] VITALS: BP 124/73; PULSE 86; RESP 16; TEMP 37.1; O2SAT 97
[2022-03-04] MEDS: methylPREDNISolone Sod Succ 125 MG/2 ML VIAL 60 MG IVPUSH (14:13)
--- NOTE | 2022-03-04 14:16 | PC.NURSE ---
patient a&ox3, classroom monitor intact nsr 80s, vss, o2 sat wnl, pt denies pain/discomfort, pt medicated per order, will continue to monitor.
[2022-03-04 14:42] LABS: Venous Blood Gas Refer to POC result
[2022-03-04 14:43] LABS: VBG Base Excess 4.7 mmol/L; VBG HCO3 30 mmol/L (22-26); VBG pCO2 48 mmHg; VBG pO2 31 mmHg
[2022-03-04 15:05] LABS: Troponin-I High Sensitivity 169.4 ng/L (<3.5-35.0)
[2022-03-04 16:19] VITALS: BP 131/76; PULSE 87; RESP 16; TEMP 36.8; O2SAT 94
== END 2022-03-04 16:43 | disposition home or self-care (01) ==
PROVIDERS: Physician Assistant Medical; Emergency Provider Emergency Medicine; PCP Internal Medicine Geriatric Medicine
DX: U07.1 COVID-19 (principal); R06.02 Shortness of breath; Z87.891 Personal history of nicotine dependence; Z79.899 Other long term (current) drug therapy
CPT/HCPCS: 0241U; 71045; 80053; 82803; 83605; 83735; 84484; 85025; 87040; 93005; 96374; 99284; J2930

== ENCOUNTER 2022-07-15 07:41 | Outpatient (REF) | payer MEDICARE, SELFPAY ==
--- NOTE | ~2022-07-15 | XR_ITS ---
EXAMINATION: XR SHOULDER, LEFT CLINICAL INFORMATION: Left shoulder pain. COMPARISON: None available. TECHNIQUE: Three views of the left shoulder. FINDINGS: There is mild acromioclavicular osteoarthritis. Glenohumeral joint is well preserved. No fracture. Alignment is anatomic. Bones are osteopenic. Soft tissues are normal with no abnormal calcifications. XR/XR shoulder LT min 2V IMPRESSION: Mild acromioclavicular osteoarthritis. No acute osseous findings.
== END 2022-07-15 07:42 | disposition home or self-care (01) ==
LOC: HO.HOSX 07:41
PROVIDERS: Visit Provider Physician Assistant
DX: M75.82 Other shoulder lesions, left shoulder (principal)
CPT/HCPCS: 73030; 99202

== ENCOUNTER 2023-07-01 10:14 | Outpatient (REF) | payer MEDICARE, SELFPAY ==
[2023-07-01 11:48] LABS: Anion Gap 11 (12-20); Blood Urea Nitrogen 14 mg/dL (9-16); Calcium 9.4 mg/dL (8.4-10.2); Carbon Dioxide 33 mmol/L (22-29); Chloride 103 mmol/L (96-108); Estimated Glomerular Filt Rate > 60; Glucose Random 104 mg/dL (60-115); Potassium 4.2 mmol/L (3.3-5.1); Sodium 143 mmol/L (135-145)
== END 2023-07-01 10:15 | disposition home or self-care (01) ==
LOC: HO.HHCL 10:14
PROVIDERS: Visit Provider Internal Medicine Geriatric Medicine
DX: I10 Essential (primary) hypertension (principal)
CPT/HCPCS: 36415; 80048

== ENCOUNTER 2023-12-05 13:13 | Outpatient (AMB) | payer MEDICARE, SELFPAY ==
--- NOTE | 2023-12-04 21:27 | A.OFFVIS_ITS ---
Vital Signs 12/05/23 13:35 Height 5 ft 11 in Weight 144 lb 6.444 oz BMI 20.1 BP 158/92 H Blood Pressure Location Rt brachial Position Sitting Pulse 75 Pulse Source Pulse Oximeter Pulse Oximetry (%) 91 L Oxygen Delivery Method Room Air Intake Visit Reasons: COPD Allergies No Known Allergies [No Known Allergies*] Allergy (Verified 12/05/23 13:38) HPI HPI COPD: Details: Thony is a pleasant 73 year old male, former smoker, quit in 2009 with 50 pack year history, with underlying COPD and HTN. He was referred by PCP for pulmonary evaluation. He reports suboptimal effect with Symbicort. He continues to report dyspnea on minimal exertion, intermittent productive cough with white sputum and wheezing. His PCP has prescribed Incruse in the past however patient can not tolerate and did not have significant response. He does not use supplemental oxygen however bought a portable concentrator offline which he uses intermittently, can not recall the liter flow. He denies prior h/o asthma. Father and two brothers, smokers, with COPD. He denies any occupational exposures. [facility] with reportedly unremarkable scans. No reports available today. [facility] Medical History (Updated 12/04/23 @ 21:30 by Bruna Schulte NP) Right inguinal hernia Hypercholesteremia COPD (chronic obstructive pulmonary disease) HTN (hypertension) Surgical History (System 05/17/23 @ 15:22 by Kelli Davison) History of right inguinal hernia repair History of cataract surgery History of hip surgery History of colon surgery Social History Alcohol intake: current Alcohol intake frequency: holidays/special occasions only Patient Tobacco Use Status: Former Tobacco user Tobacco use type: Cigarette Current occupational status: retired and disabled 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 Review of Systems Const Denies chills, Denies excessive sweating, Denies fever(s), Denies headache(s) and Denies night sweats Eyes Denies dry eyes, Denies irritation and Denies itchy eyes ENT Reports Normal hearing present, Denies headache(s), Denies nasal congestion, Denies nasal discharge, Denies post nasal drip and Denies sore throat Card Denies chest pain, Denies chest pain at rest, Denies chest pain with activity, Denies claudication, Denies leg edema, Reports dyspnea on exertion, Denies orthopnea and Denies paroxysmal nocturnal dyspnea Resp Denies chest congestion, Reports cough, Denies excessive phlegm production, Denies pain on inspiration, Denies pain with cough, Reports dyspnea on exertion, Denies stridor and Reports wheezing Musc Denies myalgias Neuro Reports Normal hearing present and Denies headache(s) Endo Denies excessive sweating Refugio/Lymph Denies lymphadenopathy Aller/Immun Denies itchy eyes, Denies seasonal rhinorrhea and Reports wheezing Physical Exam Vital Signs: Last Vital Signs Pulse 75 12/05/23 13:35 BP 158/92 H 12/05/23 13:35 Pulse Ox 91 L 12/05/23 13:35 Oxygen Delivery Method Room Air 12/05/23 13:35 BMI result Body Mass Index 20.1 Const General: cooperative, healthy appearing, comfortable, no acute distress, well developed and alert Orientation/consciousness: patient oriented x3 Limitations: no limitations HEENT Head: Yes normal to inspection, Yes normocephalic and Yes atraumatic Ears: hearing grossly normal bilaterally and external ears normal Eyes General: appearance normal, both eyes and all related structures Eyelids: Yes eyelids normal Sclerae: sclerae normal EOM: EOMs intact bilaterally Neck Neck: Yes normal visual inspection and Yes no lymphadenopathy Lymphatic: no lymphadenopathy noted Chest Chest palpation & inspection: normal inspection of the chest Resp Other: significantly diminished lung sounds, moderately improved with DuoNeb. Effort & Inspection: normal respiratory effort, able to speak in complete sentences, no audible wheezes, no cough, no stridor, not tachypneic, no tripod positioning and no use of accessory muscles Auscultation: diminished lung sounds Cardio Jugular venous distension: no JVD Rate: regular rate Rhythm: regular rhythm Skin Other: warm, dry General skin exam: no rashes or lesions noted Neuro General: patient oriented x3 Cranial nerves: Yes Normal hearing present Cognition (Neuro): normal cognition Gait exam (Neuro): Normal gait present Extrem General: Yes normal to inspection, Yes capillary refill normal, Yes no clubbing, cyanosis or edema and Yes no pedal edema Psych Appearance: grossly normal and well kempt Speech and movement: Normal speech and movement present and Clear speech present Affect: normal affect Attitude: cooperative Thought process: Normal thought process present Thought content: Normal thought content present Insight: Good insight present (Psych) Judgement: Good judgement present (Psych) Office Procedures Nebulizer Treatment Nebulizer Treatment 40520-[id number]/MDI RX initial, or Nebulizer Subsequent Treatment Office Meds ipratropium 0.5 mg-albuterol 3 mg (2.5 mg base)/3 mL nebulization soln Performing Provider: Bruna Schulte NP Performing Location: [facility] [place] [facility] Pulmonology Services Administered by: Aster Gu LPN on 12/05/23 14:10 Dose Route Admin Location Dispensed Lot Number Expiration Date NDC Parole Officer 3 mL inhalation 3 mL [id number] 07/25/25 41125-040-66 AHP Assessment & Plan Assessment & Plan (1) COPD (chronic obstructive pulmonary disease): Code(s): J44.9 - Chronic obstructive pulmonary disease, unspecified Category: Medical (2) Personal history of tobacco use: Code(s): Z87.891 - Personal history of nicotine dependence Category: Social Hx Plan Leta' symptoms are likely related to underlying COPD, unclear severity. Will send for PFT to evaluate. He reports suboptimal effect with Symbicort, will add Spiriva as he could not tolerate Incruse. On exam patient with wheezing throughout with some improvement after DuoNeb, will send in prednisone. Will obtain records from [facility] to review prior chest CT. Will perform 6MWT at next visit. All questions were answered and patient is in agreement of plan. Will follow up in 2-4 weeks or sooner if needed. Orders: Orders AMB Nebulizer Treatment Today J44.9 - Chronic obstructive pulmonary disease, unspecified PFT pulmonary function test Today J44.9 - Chronic obstructive pulmonary disease, unspecified Medications: New tiotropium bromide 1.25 mcg/actuation (Spiriva Respimat) 2 puffs inhalation DAILY 4 grams 3RF prednisone 40 mg (2 x 20 mg) PO DAILY 10 tabs 0RF Coding Level of Care Code New Pt Level 4 (91032) Diagnoses COPD (chronic obstructive pulmonary disease) J44.9 Personal history of tobacco use Z87.891 CPT Codes Nebulizer Treatment - Nebulizer Treatment, initial or subsequent: 73192- Nebulizer/MDI RX initial, or Nebulizer Subsequent Treatment ([id number])
[2023-12-05 13:35] VITALS: BP 158/92; PULSE 75; O2SAT 91; BMI 20.1
== END 2023-12-05 15:58 | disposition home or self-care (01) ==
PROVIDERS: PCP Internal Medicine Geriatric Medicine; Referring Provider Internal Medicine Geriatric Medicine; Visit Provider Nurse Practitioner Family
DX: J44.9 Chronic obstructive pulmonary disease, unspecified (principal); Z87.891 Personal history of nicotine dependence
CPT/HCPCS: 99204; 99214

== ENCOUNTER → 2023-12-05 13:13 | Outpatient (BNVA) | payer MEDICARE, SELFPAY | PROVIDERS: PCP Internal Medicine Geriatric Medicine; Referring Provider Internal Medicine Geriatric Medicine; Visit Provider Nurse Practitioner Family | DX: J44.9 Chronic obstructive pulmonary disease, unspecified (principal); Z87.891 Personal history of nicotine dependence | CPT/HCPCS: 94640; 99202 ==

== ENCOUNTER 2023-12-16 10:15 | Outpatient (REF) | payer MEDICARE, SELFPAY ==
[2023-12-16 11:39] LABS: Basophils Percent Auto 0.2 % (0-2); Eosinophils Absolute Auto 0.1 X10*3/uL (0.0-0.4); Eosinophils Percent Auto 0.5 % (0-4); Hematocrit 48.4 % (42.0-52.0); Hemoglobin 16.1 g/dl (14.0-18.0); Imm Gran Abs Auto 0.06 X10*3/uL (0.00-0.03); Imm Gran Pct Auto 0.5 % (0.0-0.4); Lymphocytes Absolute Auto 2.3 X10*3/uL (1.2-4.9); Lymphocytes Percent Auto 17.9 % (20-40); MANUAL DIFF FLAG SCAN; Mean Corpuscular HGB Conc 33.3 g/dl (31.0-36.0); Mean Corpuscular Hemoglobin 31.6 pg (27.0-33.0); Mean Corpuscular Volume 95.1 fL (80.0-98.0); Mean Platelet Volume 10.7 fL (9.4-12.4); Monocytes Absolute Auto 1.6 X10*3/uL (0.1-1.2); Monocytes Percent Auto 12.1 % (2-11); Neutrophils Absolute Auto 8.9 x10*3/uL (2.0-8.3); Neutrophils Percent Auto 68.8 % (45-73); Platelet Count 299 X10*3/uL (160-400); Red Blood Count 5.09 X10*6/uL (4.60-5.80); Red Cell Distribution Width 13.1 % (11.0-16.0); SCAN SMEAR FLAG 1; White Blood Count 12.9 X10*3/uL (4.8-10.8)
[2023-12-16 12:22] LABS: Anion Gap 12 (12-20); Blood Urea Nitrogen 16 mg/dL (9-16); Calcium 9.2 mg/dL (8.4-10.2); Carbon Dioxide 30 mmol/L (22-29); Chloride 104 mmol/L (96-108); Estimated Glomerular Filt Rate > 60; Glucose Random 94 mg/dL (60-115); Potassium 3.5 mmol/L (3.3-5.1); Sodium 142 mmol/L (135-145)
[2023-12-16 12:46] LABS: SLIDE REVIEW VERIFIED
== END 2023-12-16 10:16 | disposition home or self-care (01) ==
LOC: HO.HHCL 10:15
PROVIDERS: Visit Provider Internal Medicine Geriatric Medicine
DX: I10 Essential (primary) hypertension (principal)
CPT/HCPCS: 36415; 80048; 85025

== ENCOUNTER 2024-01-23 10:55 | Outpatient (AMB) | payer MEDICARE, SELFPAY ==
[2024-01-23 10:56] VITALS: BP 144/88; PULSE 71; O2SAT 91; BMI 20.3
--- NOTE | 2024-01-23 10:56 | MHC.OFFVIS ---
Vital Signs 01/23/24 10:56 Height 5 ft 11 in Weight 145 lb 8.081 oz BMI 20.3 BP 144/88 H Blood Pressure Location Rt brachial Position Sitting Pulse 71 Pulse Source Pulse Oximeter Pulse Oximetry (%) 91 L Oxygen Delivery Method Room Air Intake Visit Reasons: COPD Allergies No Known Allergies [No Known Allergies*] Allergy (Verified 01/23/24 10:59) HPI HPI COPD: Details: Thony is a pleasant 73 year old male, former smoker, quit in 2009 with 50 pack year history, with underlying COPD and HTN. He reported suboptimal effect with Symbicort and Spiriva was added to regimen. He reports significant improvement in symptoms, rarely requiring albuterol MDI which he was using frequently. He does not use supplemental oxygen however bought a portable concentrator offline which he uses intermittently, can not recall the liter flow and is not wearing today. He denies any persistent urgent care hospitalizations in the last visit. [facility] Medical History (Updated 01/23/24 @ 11:12 by Bruna Schulte NP) Right inguinal hernia Hypercholesteremia COPD (chronic obstructive pulmonary disease) HTN (hypertension) Surgical History (System 05/17/23 @ 15:22 by Kelli Davison) History of right inguinal hernia repair History of cataract surgery History of hip surgery History of colon surgery Social History Alcohol intake: current Alcohol intake frequency: holidays/special occasions only Patient Tobacco Use Status: Former Tobacco user Tobacco use type: Cigarette Current occupational status: retired and disabled 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 Review of Systems Const Denies chills, Denies excessive sweating, Denies fever(s), Denies headache(s) and Denies night sweats Eyes Denies dry eyes, Denies irritation and Denies itchy eyes ENT Reports Normal hearing present, Denies headache(s), Denies nasal congestion, Denies nasal discharge, Denies post nasal drip and Denies sore throat Card Denies chest pain, Denies chest pain at rest, Denies chest pain with activity, Denies claudication, Denies leg edema, Reports dyspnea on exertion, Denies orthopnea and Denies paroxysmal nocturnal dyspnea Resp Denies chest congestion, Reports cough, Denies excessive phlegm production, Denies pain on inspiration, Denies pain with cough, Reports dyspnea on exertion, Denies stridor and Reports wheezing Musc Denies myalgias Neuro Reports Normal hearing present and Denies headache(s) Endo Denies excessive sweating Refugio/Lymph Denies lymphadenopathy Aller/Immun Denies itchy eyes, Denies seasonal rhinorrhea and Reports wheezing Physical Exam Vital Signs: Last Vital Signs Pulse 71 01/23/24 10:56 BP 144/88 H 01/23/24 10:56 Pulse Ox 91 L 01/23/24 10:56 Oxygen Delivery Method Room Air 01/23/24 10:56 BMI result Body Mass Index 20.3 Const General: cooperative, healthy appearing, comfortable, no acute distress, well developed and alert Orientation/consciousness: patient oriented x3 Limitations: no limitations HEENT Head: Yes normal to inspection, Yes normocephalic and Yes atraumatic Ears: hearing grossly normal bilaterally and external ears normal Eyes General: appearance normal, both eyes and all related structures Eyelids: Yes eyelids normal Sclerae: sclerae normal EOM: EOMs intact bilaterally Neck Neck: Yes normal visual inspection and Yes no lymphadenopathy Lymphatic: no lymphadenopathy noted Chest Chest palpation & inspection: normal inspection of the chest Resp Other: bibasilar inspiratory crackles Effort & Inspection: normal respiratory effort, able to speak in complete sentences, no audible wheezes, no cough, no stridor, not tachypneic, no tripod positioning and no use of accessory muscles Auscultation: diminished lung sounds Cardio Jugular venous distension: no JVD Rate: regular rate Rhythm: regular rhythm Skin Other: warm, dry General skin exam: no rashes or lesions noted Neuro General: patient oriented x3 Cranial nerves: Yes Normal hearing present Cognition (Neuro): normal cognition Gait exam (Neuro): Normal gait present Extrem General: Yes normal to inspection, Yes capillary refill normal, Yes no clubbing, cyanosis or edema and Yes no pedal edema Psych Appearance: grossly normal and well kempt Speech and movement: Normal speech and movement present and Clear speech present Affect: normal affect Attitude: cooperative Thought process: Normal thought process present Thought content: Normal thought content present Insight: Good insight present (Psych) Judgement: Good judgement present (Psych) Assessment & Plan Assessment & Plan (1) COPD (chronic obstructive pulmonary disease): Code(s): J44.9 - Chronic obstructive pulmonary disease, unspecified Category: Medical (2) Personal history of tobacco use: Code(s): Z87.891 - Personal history of nicotine dependence Category: Social Hx Plan Thony reports improvements with Spiriva, advised to continue in addition to Symbicort. Patient with inspiratory bibasilar crackles on exam, denies BLE edema or orthopnea. Will send for CXR today. Discussed overnight oximetry to assess for nocturnal hypoxemia as well as performing a 6 minute walk test today however he declined. Reviewed adverse effects of hypoxia. Will discuss again at next visit. Reviewed prior chest CT which revealed emphysematous changes as well as stable 5 mm nodule of right middle lobe. He will be scheduled for repeat chest CT in May 2024 through [facility]. All questions were answered and patient is in agreement of plan. Will follow-up in 3 months or sooner if needed. Orders: Orders XR chest 2V Today R09.89 - Other specified symptoms and signs involving the circulatory and respiratory systems Coding Level of Care Code Est Pt Level 4 (04705) Diagnoses COPD (chronic obstructive pulmonary disease) J44.9 Personal history of tobacco use Z87.891
== END 2024-01-23 11:15 | disposition home or self-care (01) ==
PROVIDERS: PCP Internal Medicine Geriatric Medicine; Visit Provider Nurse Practitioner Family
DX: J44.9 Chronic obstructive pulmonary disease, unspecified (principal); Z87.891 Personal history of nicotine dependence
CPT/HCPCS: 99214

== ENCOUNTER → 2024-01-23 10:55 | Outpatient (BNVA) | payer MEDICARE, SELFPAY | PROVIDERS: PCP Internal Medicine Geriatric Medicine; Visit Provider Nurse Practitioner Family | DX: J44.9 Chronic obstructive pulmonary disease, unspecified (principal); I10 Essential (primary) hypertension; R09.89 Other specified symptoms and signs involving the circulatory and respiratory systems; Z87.891 Personal history of nicotine dependence | CPT/HCPCS: 99212 ==

== ENCOUNTER 2024-04-23 10:41 | Outpatient (AMB) | payer MEDICARE, SELFPAY ==
--- NOTE | 2024-04-23 10:48 | A.OFFVIS_ITS ---
Vital Signs 04/23/24 10:49 Height 5 ft 11 in Weight 141 lb 1.533 oz BMI 19.7 BP 140/78 H Blood Pressure Location Rt brachial Position Sitting Pulse 77 Pulse Source Pulse Oximeter Pulse Oximetry (%) 86 L Oxygen Delivery Method Room Air Intake Visit Reasons: COPD Allergies No Known Allergies [No Known Allergies*] Allergy (Verified 04/23/24 10:51) HPI HPI COPD: Details: Thony is a pleasant 74 year old male, former smoker, quit in 2009 with 50 pack year history, with underlying COPD and HTN. He reported suboptimal effect with Symbicort and Spiriva was added to regimen, continues to report dyspnea and wheezing. He bought a portable concentrator offline which he uses intermittently, can not recall the liter flow and is not wearing today. He denies any urgent care visits or hospitalizations since the last visit related to respiratory distress. [facility] Medical History (Updated 04/23/24 @ 13:17 by Bruna Schulte NP) Right inguinal hernia Hypercholesteremia COPD (chronic obstructive pulmonary disease) HTN (hypertension) Surgical History (System 05/17/23 @ 15:22 by Kelli Davison) History of right inguinal hernia repair History of cataract surgery History of hip surgery History of colon surgery Social History Alcohol intake: current Alcohol intake frequency: holidays/special occasions only Patient Tobacco Use Status: Former Tobacco user Tobacco use type: Cigarette Current occupational status: retired and disabled 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 Review of Systems Const Denies chills, Denies excessive sweating, Denies fever(s), Denies headache(s) and Denies night sweats Eyes Denies dry eyes, Denies irritation and Denies itchy eyes ENT Reports Normal hearing present and Denies headache(s) Card Denies chest pain, Denies chest pain at rest, Denies chest pain with activity, Denies claudication, Denies leg edema, Reports dyspnea on exertion, Denies orthopnea and Denies paroxysmal nocturnal dyspnea Resp Denies chest congestion, Reports cough, Denies excessive phlegm production, Denies pain on inspiration, Denies pain with cough, Reports dyspnea on exertion, Denies stridor and Reports wheezing Musc Denies myalgias Neuro Reports Normal hearing present and Denies headache(s) Endo Denies excessive sweating Refugio/Lymph Denies lymphadenopathy Aller/Immun Denies itchy eyes, Denies seasonal rhinorrhea and Reports wheezing Physical Exam Vital Signs: Last Vital Signs Pulse 77 04/23/24 10:49 BP 140/78 H 04/23/24 10:49 Pulse Ox 86 L 04/23/24 10:49 Oxygen Delivery Method Room Air 04/23/24 10:49 BMI result Body Mass Index 19.7 Const General: cooperative, healthy appearing, comfortable, no acute distress, well developed and alert Orientation/consciousness: patient oriented x3 Limitations: no limitations HEENT Head: Yes normal to inspection, Yes normocephalic and Yes atraumatic Ears: hearing grossly normal bilaterally and external ears normal Eyes General: appearance normal, both eyes and all related structures Eyelids: Yes eyelids normal Sclerae: sclerae normal EOM: EOMs intact bilaterally Neck Neck: Yes normal visual inspection and Yes no lymphadenopathy Lymphatic: no lymphadenopathy noted Chest Chest palpation & inspection: normal inspection of the chest Resp Effort & Inspection: normal respiratory effort, able to speak in complete sentences, no audible wheezes, no cough, no stridor, not tachypneic, no tripod positioning and no use of accessory muscles Auscultation: wheezes and diminished lung sounds Cardio Jugular venous distension: no JVD Rate: regular rate Rhythm: regular rhythm Skin Other: warm, dry General skin exam: no rashes or lesions noted Neuro General: patient oriented x3 Cranial nerves: Yes Normal hearing present Cognition (Neuro): normal cognition Gait exam (Neuro): Normal gait present Extrem General: Yes normal to inspection, Yes capillary refill normal, Yes no clubbing, cyanosis or edema and Yes no pedal edema Psych Appearance: grossly normal and well kempt Speech and movement: Normal speech and movement present and Clear speech present Affect: normal affect Attitude: cooperative Thought process: Normal thought process present Thought content: Normal thought content present Insight: Good insight present (Psych) Judgement: Good judgement present (Psych) Assessment & Plan Assessment & Plan (1) COPD (chronic obstructive pulmonary disease): Code(s): J44.9 - Chronic obstructive pulmonary disease, unspecified Category: Medical (2) Personal history of tobacco use: Code(s): Z87.891 - Personal history of nicotine dependence Category: Social Hx Plan Thony reports suboptimal effect with current regimen, will increase Symbicort 80mcg to 160 mcg and continue Spiriva. Patient with expiratory wheezes throug hout, will send prednisone. He is aware if symptoms do not improve to call office. Reviewed adverse effects of hypoxia, patient ambulated from waiting room to exam room, approximately 50 yards and desaturated to 86% on room air, requiring 2L of supplemental oxygen, recovering to 93%. He stated he bought a portable oxygen but does not have a prescription for supplemental oxygen. Will send order to [facility] for 2L of supplemental oxygen with ambulation. Will also send for overnight to assess for nocturnal hypoxemia. Reviewed prior chest CT which revealed emphysematous changes as well as stable 5 mm nodule of right middle lobe, will repeat chest CT to assess stability, if no changes no need for further imaging unless symptoms change. All questions were answered and patient is in agreement of plan. Will follow-up in 3 months or sooner if needed. Orders: Orders Overnight Pulse Oximetry Today G47.34 - Idiopathic sleep related nonobstructive alveolar hypoventilation CT chest wo IV con Today R91.1 - Solitary pulmonary nodule Medications: New budesonide-formoterol 160-4.5 mcg/actuation (Symbicort) 2 puffs inhalation Q12H 10.2 grams 3RF Refilled tiotropium bromide 1.25 mcg/actuation (Spiriva Respimat) 2 puffs PO DAILY 4 mL 3RF prednisone 40 mg (2 x 20 mg) PO DAILY 10 tabs 0RF Coding Level of Care Code Est Pt Level 4 (58617) Diagnoses COPD (chronic obstructive pulmonary disease) J44.9 Personal history of tobacco use Z87.892
[2024-04-23 10:49] VITALS: BP 140/78; PULSE 77; O2SAT 86; BMI 19.7
--- OUTSIDE RECORDS SUMMARY | 2024-04-23 15:25 | XMS_ITS | Encounter Summary ---
Author Organization [employer] Address [address] [place] [address] Care Team Providers Care Cyber Special Agent Name Role Phone Subhash Foley MD Primary Care Provider Fernanda Reyes PharmD Unavailable Reason for Visit * Reason Comments Med Refill Encounter Details Date Type Department Care Team ([facility] Contact Info) Description 09/10/2022 Refill [facility] [address] [place] [phone] Subhash Foley MD [address] [place] [id number] Social History Tobacco Use Types Packs/Day Years Used Date Smoking Tobacco: Former Cigarettes Q uit: 2010 Smokeless Tobacco: Never Alcohol Use Standard Drinks/Week Comments Not Currently 0 (1 standard drink = 0.6 oz pur e alcohol) Depression Answer Date Recorded Patient Health Questionnaire-9 Score 0 06/14/2022 Depression Answer Date Recorded Patient Health Questionnaire-2 Score 0 06/14/2022 Sex and Gender Information Value Date Recorded Sex Assigned at Male 01/25/2022 10:37 AM EDT Legal Sex Male 10:37 AM EDT Gender Identity Male 01/25/2022 10:37 AM EDT Sexual Orientation Straight 01/25/2022 10 :37 AM EDT documented as of this encounter Plan of Treatment Upcoming Encounters Date Type Department Care Team ([facility] Contact Info) Description 06/13/2024 2:00 PM EDT Office Visit [facility] [address] [place] [id number] Subhash Foley MD [address] [place] [address] documented as of this encounter Goals Goal Patient Goal Type Associated Problems Recent Progress Patient-Stated? Author Record your blood pressure once a week Blood Pressure No Fernanda Reyes PharmD Note: Continue periodic SMBP and record values (including HR) for review in follow up. Blood Pressure < 140/90 Blood Pressure 151/72(2023 10:52 AM EST) No Fernanda Reyes PharmD documented as of this encounter Visit Diagnoses Not on filedocumented in this encounter Additional Health Concerns Assessment Noted Time PHQ-9 Depression Total Score: 0 06/15/19 23 2:12 PM EDT documented as of this encounter Care Teams Cyber Special Agent Relationship Specialty Start Date End Date Name, MD Subhash [address] [place] [phone] PCP - General Family Medicine 04/23/21 Fernanda Reyes, JenD [address] [place] [phone] Pharmacist Internal Medicine 12/21/21 documented as of this encounter
--- OUTSIDE RECORDS SUMMARY | 2024-04-23 15:25 | XMS_ITS | Clinical Summary ---
Author Organization [employer] Address [address] [facility] 7[address] [place] [address] Care Team Providers Care Magnetic Observer Name Role Phone Name, Subhash GARDUNO Primary Care Provider [phone] Fernanda Reyes PharmD Unavailable [phone] Allergies No known active allergies Medications latanoprost (Xalatan) 0.005 % ophthalmic solution Administer 1 drop into both eyes 1 (one) time each day. 2 Active SM All Day Allergy Relief 10 MG tablet Take 10 mg by mouth 1 (one) time each day. 2 Active brimonidine (AlphaGAN P) 0.2 % ophthalmic solution Use 1 drop in each eye twice daily 3 Active albuterol 108 (90 Base) MCG/ACT inhaler USE 2 INHALACIONES POR LA BOCA CUATRO VECES AL STEVO CUANDO SEA NECESARIO PARA LAS SIBILANCIAS , PARA LA TOS Y LA FALTA DE RESPIRACION 34 g 3 3 Active losartan (Cozaar) 25 MG tabletIndication s:Essential hypertension TAKE 1 TABLET BY MOUTH EVERY DAY 100 tablet 2 4 Active budesonide-formo terol (Symbicort) 80-4.5 MCG/ACT inhaler Rinse mouth with water after use to reduce aftertaste and incidence of candidiasis. 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 Patient had colectomy in 2018. Last Colonoscopy August 2018, findings non-neoplastic inflammatory, recommended repeat in 3 years (due August 2021). 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 Encounters Date Type Department Care Team Description 04/05/[address] [facility] [address] [place] [address] Rodrigo Lockhart MA feb recalls 03/03/[address] [facility] [address] [place] [phone] NameSubhash MD Essential hypertension 02/15/2024 11:00 AM EST Office Visit [facility] [address] [place] [address] NameSubhash MD Chronic obstructive pulmonary disease, unspecified COPD type (CMS/HCC) (Primary Dx); Essential hypertension; Encounter for immunization 02/13/[address] [facility] [address] [place] [address] Fauzia Schwartz MA Chart Prep from Last 3 Months Immunizations Name Administration Dates Next Due INFLUENZA INJECTABLE QUADRIV ALANT CCIIV4 MDCK Multi-dose vial 01/24/2017 Influenza High-dose Quadriva lent Preservative Free 01/13/2023,12/21/2021 Influenza Quadrivalent Adjuvanted 01/09/2020 Influenza, High Dose Seasona l, Preservative Free 02/15/2024,02/12/2021,01/17/2019,12/13 Influenza, IIV3, injectable 01/22/2016,0 12/23/2014,02/07/2014,12/21,12/18/2012,01/07/2012,12/29/2010 ,01/30/2010,12/06/2008,12/27/2006 Novel [id number], preservative-free 04/29/2009 Pfizer Covid-19 Vaccine 12+ 02/15/2024 Pneumococcal Conjugate PCV 13 01/24/2017 Pneumococcal Polysaccharide PPSV23 02/12/2021, RSV Bivalent 05/13/2023 Td (adult), unspecified 09/09/2004 Tdap 09/09/2013,08/07/2013 Zoster, Recombinant 01/25/2022 Social History Tobacco Use Types Packs/Day Years Used Date Smoking Tobacco: Former Cigarettes Q uit: 2010 Smokeless Tobacco: Never Tobacco Cessation:Counseling Given: Not Answered Alcohol Use Standard Drinks/Week Comments Yes 0 (1 standard drink = 0.6 oz pur e alcohol) socially Depression Answer Date Recorded Patient Health Questionnaire-9 Score 0 05/13/2023 Patient Health Questionnaire-9 Score 0 05/13/2023 Last PHQ-9: Questionnaire Data Not on file 0 05/13/2023 Housing Stability Answer Date Recorded What is your housing situation today? I have joyce bob 08/16/[address] you li ve. Do you have problems with any of the following? None of the above 08/16/2023 Food Insecurity Answer Date Recorded Within the past 12 months, y ou worried that your food would run out before you got money to buy more: Never True 08/16/2023 Within the past 12 months,th e food you bought just didn't last and you didn't have enough money to get more: Never True Transportation Answer Date Recorded In the past 12 months, has l ack of transportation kept you from medical appts, meetings, work or from getting things needed for daily living? No 08/16/2023 Utilities Answer Date Recorded In the past 12 months, has t he electric, gas, oil or water company threatened to shut off services in your home? No 08/16/2023 Depression Answer Date Recorded Patient Health Questionnaire-2 Score 0 05/13/2023 Sex and Gender Information Value Date Recorded Sex Assigned at Male 01/25/2022 10:37 AM EDT Legal Sex Male 10:37 AM EDT Gender Identity Male 01/25/2022 10:37 AM EDT Sexual Orientation Straight 01/25/2022 10 :37 AM EDT Last Filed Vital Signs Vital Sign Reading Time Taken Comments Blood Pressure 151/72 02/15/2024 10:52 AM EST Pulse 79 02/15/2024 10:52 AM EST Temperature 36.4 ??C (97.5 ??F) 02/15/2024 1 0:52 AM EST Respiratory Rate 12 02/15/2024 10:5 2 AM EST Oxygen Saturation 95% 02/15/2024 10: 52 AM EST Inhaled Oxygen Concentration - - Weight 66.1 kg (145 lb 12.8 oz) 024 10:52 AM EST Height 180.3 cm (5' 11 ) 02/15/2024 10: 52 AM EST Body Mass Index 20.33 02/15/2024 10:52 AM EST Plan of Treatment Upcoming Encounters Date Type Department Care Team (Late st Contact Info) Description 06/13/2024 2:00 PM EDT Office Visit [facility] [address] [place] [phone] Name, MD Subhash [address] [place] [address] Health Maintenance Due Date Last Done Comments CT Colonography 1950 Colonoscopy 1950 Colorectal Cancer Screening 1950 FIT DNA/Cologuard 1950 FIT 1950 FOBT 1950 Sigmoidoscopy 1950 Zoster Vaccines (2 of 2) 03/22/2022 01/25/2022 DTaP/Tdap/Td Vaccines (3 - Td or Tdap) 09/10/2023 09/09/2013, 08/07/2013, 09/09/2004 Depression Screening 05/13/2024 05/13/2023, 05/13/19 SDOH Screening 08/15/2024 08/16/2023 Alcohol/Substance Use Screening 11/14/2024 11/15/2023 Tobacco Screening 02/14/2025 02/15/2024 Lipid Panel 06/19/2027 06/18/2022, 07/03/2021 Pneumococcal Vaccine: 65+ Years Completed 02/12/2021, 01/24/2017, 12/27/2006 Hepatitis C Screening Completed 07/03/2021 RSV Patients and Patients Aged 60 years or older Completed 05/13/2023 COVID-19 Vaccine Completed 02/15/2024, 03/2021, 03/31/2021, Additional history exists Influenza Vaccine Completed 02/15/2024, , 12/21/2021, Additional history exists HIB Vaccines Aged Out No longer eligi ble based on patient's age to complete this topic HPV Vaccines Aged Out No longer eligi ble based on patient's age to complete this topic Hepatitis A Vaccines Aged Out No long er eligible based on patient's age to complete this topic Hepatitis B Vaccines Aged Out No long er eligible based on patient's age to complete this topic IPV Vaccines Aged Out No longer eligi ble based on patient's age to complete this topic Meningococcal Vaccine Aged Out No shana samira eligible based on patient's age to complete this topic RSV under 20 months Aged Out No longe r eligible based on patient's age to complete this topic Rotavirus Vaccines Aged Out No longer eligible based on patient's age to complete this topic Goals Goal Patient Goal Type Associated Problems Recent Progress Patient-Stated? Author Record your blood pressure once a week Blood Pressure No Fernanda Reyes, PharmD Note: Continue periodic SMBP and record values (including HR) for review in follow up. Blood Pressure < 140/90 Blood Pressure 151/72(2023 10:52 AM EST) No Puia Fernanda, PharmD Procedures Procedure Name Priority Date/Time Associated Diagnosis Comments LIPID PANEL, STANDARD Routine 06/18/2022 8:13 AM EDT Essential hypertension Malignant neoplasm of colon, unspecified part of colon (CMS/HCC) Chronic obstructive pulmonary disease, unspecified COPD type (CMS/HCC) High cholesterol ZZZ HISTORICAL HEPATITIS C AB W/REFL TO HCV RNA, QN, PCR Routine 07/03/2021 8:39 AM EDT from Last 3 Months or Most Recently Relevant to Health Maintenance Results * (ABNORMAL) Lipid Panel, Standard (06/18/2022 8:13 AM EDT) Cholesterol, Total 206(H) <200 mg/dL [facility] HDL Cholesterol 68 > OR = 40 mg/dL [facility] Triglycerides 99 <150 mg/dL [facility] LDL Cholesterol 117(H) mg/dL (calc) [facility] Comment: Reference range: <100 Desirable range <100 mg/dL for primary prevention; ?? <70 mg/dL for patients with CHD or diabetic patients with > or = 2 CHD risk factors. LDL-C is now calculated using the Mac-Wallace calculation, which is a validated novel method providing better accuracy than the Friedewald equation in the estimation of LDL-C. Mac SS et al. KYLE. 2013;310(19): 6257-9299 (http://education.Gojimo/faq/YCH741) Chol/HDLC Ratio 3.0 <5.0 (calc) [facility] Non-HDL Cholesterol 138(H) <130 mg/dL (calc) [facility] Comment: For patients with diabetes plus 1 major ASCVD risk factor, treating to a non-HDL-C goal of <100 mg/dL (LDL-C of <70 mg/dL) is considered a therapeutic option. Blood Venous blood specimen / Unknown 06/18/2022 8:13 AM EDT 06/18/2022 8:13 AM EDT Narrative [facility] - 06/18/2022 8:32 PM EDT FASTING:YES FASTING: YES us Subhash Foley MD LAB BLOOD ORDERABLES Final Resul t [facility] [address], [place] [address] [facility] [address] [place] [address] * HEPATITIS C AB W/REFL TO HCV RNA, QN, PCR (07/03/2021 8:39 AM EDT) HEPATITIS C ANTIBODY NON-REACT EVE NON-REACT EVE [facility] INDEX 0.06 <1.00 [facility] Comment: ?? HCV antibody was non-reactive. There is no laboratory ?? evidence of HCV infection. ?? In most cases, no further action is required. However, if recent HCV exposure is suspected, a test for HCV RNA (test code 71837) is suggested. ?? For additional information please refer to http://education.Comcast/faq/ABZ18v0 (This link is being provided for informational/ educational purposes only.) ?? 07/03/2021 8:39 AM EDT us Subhash Foley MD HISTORICAL/NON ORDERABLE LABS Fi nal Result [facility] [address] from Last 3 Months or Most Recently Relevant to Health Maintenance Insurance [facility] MEDICARE ADVANTAGE HMO Care Teams Magnetic Observer Relationship Specialty Start Date End Date Name, MD Subhash [address] [place] [address] PCP - General Family Medicine 04/23/21 Fernanda eRyes PharmD [address] [place] [address] Pharmacist Internal Medicine 12/21/21
--- OUTSIDE RECORDS SUMMARY | 2024-04-23 15:25 | XMS_ITS | Encounter Summary ---
Author Organization [employer] Address [address] [facility] [address] [place] [address] Care Team Providers Care Powdered Metal Supervisor Name Role Phone Name, Subhash GARDUNO Primary Care Provider [phone] Fernanda Reyes PharmD Unavailable [phone] Reason for Visit * Reason Comments Med Refill Encounter Details Date Type Department Care Team ([facility] Contact Info) Description 03/16/2023 Refill [facility] [address] [place] [address] Name, MD Subhash [address] [place] [address] Social History Tobacco Use Types Packs/Day Years Used Date Smoking Tobacco: Former Cigarettes Q uit: 2010 Smokeless Tobacco: Never Alcohol Use Standard Drinks/Week Comments Yes 0 (1 standard drink = 0.6 oz pur e alcohol) socially Depression Answer Date Recorded Patient Health Questionnaire-9 Score 0 06/14/2022 Housing Stability Answer Date Recorded What is your housing situation today? I have joyce bob 01/11/[address] you li ve. Do you have problems with any of the following? None of the above 01/11/2023 Food Insecurity Answer Date Recorded Within the past 12 months, y ou worried that your food would run out before you got money to buy more: Never True 01/11/2023 Within the past 12 months,th e food you bought just didn't last and you didn't have enough money to get more: Never True Transportation Answer Date Recorded In the past 12 months, has l ack of transportation kept you from medical appts, meetings, work or from getting things needed for daily living? No 01/11/2023 Utilities Answer Date Recorded In the past 12 months, has t he electric, gas, oil or water company threatened to shut off services in your home? No 01/11/2023 Depression Answer Date Recorded Patient Health Questionnaire-2 [...] Description 06/13/2024 2:00 PM EDT Office Visit [facility] [address] [place] [phone] Name, MD Subhash [address] [place] [address] documented as of this encounter Goals Goal Patient Goal Type Associated Problems Recent Progress Patient-Stated? Author Record your blood pressure once a week Blood Pressure No Fernanda Reyes, PharmD Note: Continue periodic SMBP and record values (including HR) for review in follow up. Blood Pressure < 140/90 Blood Pressure 151/72(2023 10:52 AM EST) No Puia, Fernanda, PharmD documented as of this encounter Visit Diagnoses Not on filedocumented in this encounter Additional Health Concerns Assessment Noted Time PHQ-9 Depression Total Score: 0 06/15/19 23 2:12 PM EDT documented as of this encounter Care Teams Powdered Metal Supervisor Relationship Specialty Start Date End Date Name, MD Subhash [address] [place] [address] [phone] PCP - General Family Medicine 04/23/21 Fernanda Reyes, PharmD [address] [place] [phone] Pharmacist Internal Medicine 12/21/21 documented as of this encounter
--- OUTSIDE RECORDS SUMMARY | 2024-04-23 15:25 | XMS_ITS | Encounter Summary ---
Author Organization [employer] Address [address] [facility] [address] [place] [address] Care Team Providers Care Counter Roller Name Role Phone Name, Subhash GARDUNO Primary Care Provider Fernanda Reyes PharmD Unavailable Encounter Details Date Type Department Care Team ([facility] Contact Info) Description 04/26/2022 Orders Only [facility] [address] [place] [phone] Fernanda Reyes, PharmD [address] [place] [phone] Social History Tobacco Use Types Packs/Day Years Used Date Smoking Tobacco: Never Assessed Sex and Gender Information Value Date Recorded Sex Assigned at Male 01/25/2022 10:37 AM EDT Legal Sex Male 10:37 AM EDT Gender Identity Male 01/25/2022 10:37 AM EDT Sexual Orientation Straight 01/25/2022 10 :37 AM EDT COVID-19 Exposure Response Date Recorded In the last 10 days, have yo u been in contact with someone who was confirmed or suspected to have Coronavirus/COVID-19? No / Unsure 04/26/2022 10:41 AM EST documented as of this encounter Plan of Treatment Upcoming Encounters Date Type Department Care Team ([facility] Contact Info) Description 06/13/2024 2:00 PM EDT Office Visit [facility] [address] [place] [phone] Name, MD Subhash [address] [place] [phone] documented as of this encounter Goals Goal [...] Diagnoses Not on filedocumented in this encounter Care Teams Counter Roller Relationship Specialty Start Date End Date Name, MD Subhash [address] [place] [address] PCP - General Family Medicine 04/23/21 Fernanda Reyes, PharmD [address] [place] [address] Pharmacist Internal Medicine 12/21/21 documented as of this encounter
--- OUTSIDE RECORDS SUMMARY | 2024-04-23 15:25 | XMS_ITS | Encounter Summary ---
Author Organization [email or web address] Address [address] [place] [address] 7[address] [place] [address] Care Team Providers Care Scrap Breaker Name Role Phone Name, Subhash GARDUNO Primary Care Provider Fernanda Reyes PharmD Unavailable [phone] Encounter Details Date Type Department Care Team (Late Contact Info) Description 03/09/2022 Orders Only [facility] [address] [place] [phone] Emily Rebolledo LPN Social History Tobacco Use Types Packs/Day Years [...] Encounters Date Type Department Care Team (Late Contact Info) Description 06/13/2024 2:00 PM EDT Office Visit [facility] [address] [place] [phone] NameSubhash MD [address] [place], [place] [phone] documented as of this encounter Visit Diagnoses Not on filedocumented in this encounter Care Teams Scrap Breaker Relationship Specialty Start Date End Date NameSubhash MD [address] [place] [phone] PCP - General Family Medicine 04/23/21 Fernanda Reyes, Pan [address] [place] [address] Pharmacist Internal Medicine 12/21/21 documented as of this encounter
--- OUTSIDE RECORDS SUMMARY | 2024-04-23 15:25 | XMS_ITS | Clinical Summary ---
Author Organization Patient Business Ser [facility] Address [address] [place] [address] Care Team Providers Care Electrical Accessories Ii Assembler Name Role Phone Unavailable Primary Care Provider Unavailabl e Surgical History Surgery Date Site/Laterality Comments UPPER GASTROINTESTINAL ENDOSCOPY 04/20/2010 PROCEDURE: OK UPPER GI ENDOSCOPY PERFORMED; COMMENT: gastritis/duodnitis with DUs; pos AJAY test..treated COLONOSCOPY 09/26/2017 PROCEDURE: HISTORICAL COLONOSCOPY; COMMENT: 5 mm rectal polyp; large cecal tumor: Adenocarcinoma. OTHER SURGICAL HISTORY 10/18/2017 Right PROCEDURE: OK COLECTOMY PARTIAL W/ANASTOMOSIS; COMMENT: right hemicolectomy COLONOSCOPY 09/20/2018 PROCEDURE: HISTORICAL COLONOSCOPY; COMMENT: 6 mm rectal polyp: Nonneoplastic granulation tissue. Medical History Medical History Date Comments Other amyloidosis ([facility]) 10/19/2006 DX:O ther amyloidosis ([facility]) Tobacco use disorder 11/10/2006 DX:Tobacco use disorder H. pylori infection 07/06/2010 DX:H. pylori infection Gastritis and duodenitis 07/06/2010 DX:Jojo ritis and duodenitis Esophageal reflux DX:Esophageal reflux Chronic obstructive airway d isease ([facility]) 11/10/2006 DX:Chronic obstructive airwa y disease ([facility]); COMMENT: PFT 2011: Very severe COPD. Cancer, colon ([facility]) 09/27/2017 DX:Cance r, colon ([facility]); COMMENT: 09/27/2017: Adenocarcinoma of the cecum. Family History Medical History Relation Name Comments Stroke Brother at age 60 Other: heart disease, at age 76, no details Fathe r Hypertension Sister Blindness Neg Hx Cataracts Neg Hx Glaucoma Neg Hx Macular degeneration Neg Hx Strabismus Neg Hx Relation Name Status Comments Brother Father Mother Sister Social History Tobacco Use Types Packs/Day Years Used Date Smoking Tobacco: Former Cigarettes 1 41.6 1 05/05/1966 - 10/26/2008 Smokeless Tobacco: Never Alcohol Use Standard Drinks/Week Comments Yes 0 (1 standard drink = 0.6 oz pur e alcohol) Sex and Gender Information Value Date Recorded Sex Assigned at Not on file Gender Identity Not on file Sexual Orientation Not on file Obstetrics History Plan of Treatment Health Maintenance Due Date Last Done Comments Colorectal Cancer Screening: Colonoscopy 04/07/2020 Falls Risk Assessment 04/07/2020 Hepatitis C Screening 04/07/2020 Social Influencers of Health Screening 04/07/2020 Zoster Vaccines (2 of 2) 03/22/2022 01/25/2022 DTaP,Tdap,and Td Vaccines (4 - Td or Tdap) 09/10/2023 09/09/2013, 08/07/2013, 09/09/2004 Depression Screening 05/13/2024 05/13/2023 Lung Cancer Screening (Low Dose CT) 06/19/2024 06/20/2023, 11/16/2021, 09/12/2020 Hypertension/CHF/CAD Annual BMP Blood Test 12/15/2024 12/16/2023 Cholesterol Screening (Lipid Panel) 06/19/2027 06/18/2022 Abdominal Aortic Aneurysm (AAA) Screen Completed 02/02/2017 Pneumococcal Vaccine: 65+ Years Completed 02/12/2021, 01/24/2017, 12/27/2006 RSV Immunization Patients 60+ Years Old Completed 05/13/2023 COVID-19 Vaccine Completed 02/15/2024, , 07/02/2020, Additional history exists Influenza Vaccine Completed 02/15/2024, [...] on patient's age to complete this topic MMR Vaccines Aged Out No longer eligi ble based on patient's age to complete this topic Meningococcal ACWY Vaccine Aged Out N o longer eligible based on patient's age to complete this topic RSV Immunization Patients Under 20 months Aged Out No longer eligible based on patient's age to complete this topic Varicella Vaccines Aged Out No longer eligible based on patient's age to complete this topic Procedures Procedure Name Priority Date/Time Associated Diagnosis Comments CT LUNG SCREENING LOW DOSE Routine 06/20/2023 10:06 AM EDT Personal history of nicotine dependence US ABDOMINAL AORTA REAL TIME SCREEN STUDY AAA Routine 02/02/2017 8:00 AM EST Encounter for screening for cardiovascular disorders from Last 3 Months or Most Recently Relevant to Health Maintenance Results * CT LUNG SCREENING LOW DOSE (06/20/2023 10:06 AM EDT) Anatomical Region Laterality Modality Computed Tomogra phy 06/18/2023 9:16 AM EDT Narrative 06/20/2023 10:06 AM EDT [facility] Diagnostic Imaging Department [address] [place] [address] Patient: ??DONNA KOROMA ?/Age/Sex: 1950 - 73 - M Unit#: ??[id number] ? Location/Status: ??SPDICATLS/REG CLI ? Mnemonic/Ordering Site: ??CTLUNGLD/SPCT Ordering Physician: ??JASEN AHMADI MD CT Lung Screening Low Dose - 06/18/23 - 921 Report Status:Signed PROCEDURE: CT chest lung cancer screening low dose examination. INDICATION: CT lung screening. TECHNIQUE: Chest CT without intravenous contrast was performed. ??Low-dose examination was performed. ??Reformatted images were evaluated. COMPARISON: CT of the chest May 2022 FINDINGS: NODULES: Stable appearance of a 5 mm nodule in the periphery of the right middle lobe (series 3 image 167). LUNGS: Significant emphysematous changes. OTHER: Limited views of the upper abdomen appear normal. ??Mild coronary atherosclerotic disease. ??Small, nonspecific mediastinal nodes. ??Atherosclerotic disease of the aorta without aneurysm. IMPRESSION: Stable emphysematous disease and small nodule in the right chest. Lung-RADS 2. ??Follow up examination is advised in one year. Dictating Physician: ??LUIS MACHADO MD Electronically Signed by: ??LUIS MACHADO MD Dic Date/Time: ??06/20/23 0959 Sign date/Time: ??06/20/23 1006 Procedure Note Luis Machado MD - 11/14/2023 [facility] Diagnostic Imaging Department [address] [place] [address] Patient: DONNA KOROMAO.B./Age/Sex: 1950 - 73 - M Unit#: [id number] Location/Status: ABRAHAMICATLS/AROLDO CLI Mnemonic/Ordering Site: [facility] Ordering Physician: JASEN AHMADI MD CT Lung Screening Low Dose - 06/18/23 - 921 Report Status:Signed PROCEDURE: CT chest lung cancer screening low dose examination. INDICATION: CT lung screening. TECHNIQUE: Chest CT without intravenous contrast was performed.Low-dose examination was performed. Reformatted images were evaluated. COMPARISON: CT of the chest May 2022 FINDINGS: NODULES: Stable appearance of a 5 mm nodule in the periphery of theright middle lobe (series 3 image 167). LUNGS: Significant emphysematous changes. OTHER: Limited views of the upper abdomen appear normal. Mild coronary atherosclerotic disease. Small, nonspecific mediastinal nodes.Atherosclerotic disease of the aorta without aneurysm. IMPRESSION: Stable emphysematous disease and small nodule in the right chest. Lung-RADS 2. Follow up examination is advised in one year. Dictating Physician: LUIS MACHADO MD Electronically Signed by: LUIS MACHADO MD Dic Date/Time: 06/20/23 0959 Sign date/Time: 06/20/23 1006 Jasen Ahmadi MD IMG CT PROCEDURES * US ABDOMINAL AORTA REAL TIME SCREEN STUDY AAA (02/02/2017 8:00 AM EST) Anatomical Region Laterality Modality Ultrasound 01/24/2017 9:26 AM EDT Narrative 02/02/2017 8:36 AM EST Abdominal aortic ultrasound: HISTORY: AAA screening Abdominal aorta is normal in size measuring 2 cm proximally, 1.6 cm mid and 1.5 cm distally. Common iliac arteries measure 7-8 mm. IMPRESSION: IMPRESSION: No evidence AAA. Procedure Note Alonzo George MD - 04/29/2023 Abdominal aortic ultrasound: HISTORY: AAA screening Abdominal aorta is normal in size measuring 2 cm proximally, 1.6 cm midand 1.5 cm distally. Common iliac arteries measure 7-8 mm. IMPRESSION: IMPRESSION: No evidence AAA. Valeriano Brewer MD IMG US PROCEDURES from Last 3 Months or Most Recently Relevant to Health Maintenance Advance Directives Documents on File Type Date Recorded Patient Materials Buyer Expl anation Health Care Decision (hx) 05/31/2015 AD LR DIRECTIVE Health Care Decision (hx) 05/31/2015 AD LR DIRECTIVE Health Care Decision (hx) 05/31/2015 AD LR DIRECTIVE Health Care Decision (hx) 05/31/2015 AD LR DIRECTIVE
--- OUTSIDE RECORDS SUMMARY | 2024-04-23 15:25 | XMS_ITS | Encounter Summary ---
Author Organization [employer] Address [address] [place] [address] Care Team Providers Care Automotive Service Cashier Name Role Phone Name, Subhash GARDUNO Primary Care Provider [phone] Fernanda Reyes PharmD Unavailable [phone] Reason for Visit * Reason Onset Date Comments apr recalls 04/05/2024 Encounter Details Date Type Department Care Team (Late st Contact Info) Description 04/05/2024 Telephone [facility] [address] [place] [address] Rodrigo Lockhart MA apr recalls Social History Tobacco Use Types Packs/Day Years [...] AM EDT documented as of this encounter Miscellaneous Notes * Telephone Encounter - Ana Herman RN - 04/09/2024 9:52 AM EST Noted. Pt already scheduled on 06/13/2024 at 2:00 PM for 3 month f/u. * Telephone Encounter - Binh Melendrez - 04/09/2024 8:18 AM EST TC from pt returning call regarding prior message. Contact pt at [phone] * Telephone Encounter - Rodrigo Lockhart MA - 04/05/2024 4:16 PM EST T/C -IMELDA unable to reach pt,lvm for pt to call back so we could schedule ___follow up _ , if pt calls back you could transfer call to [facility] , letter sent . documented in this encounter Plan of Treatment Upcoming Encounters Date Type Department Care Team (Late st Contact Info) Description 06/13/2024 2:00 PM EDT Office Visit [facility] [address] [place] [address] Name, MD Subhash [address] [place] [address] documented as of this encounter Goals Goal [...] Noted Time PHQ-9 Depression Total Score: 0 05/13/19 24 11:36 AM EST documented as of this encounter Care Teams Automotive Service Cashier Relationship Specialty Start Date End Date Name, MD Subhash [address] [place] [address] PCP - General Family Medicine 04/23/21 Fernanda Reyse PharmD [address] [place] [address] Pharmacist Internal Medicine 12/21/21 documented as of this encounter
== END 2024-04-23 11:23 | disposition home or self-care (01) ==
PROVIDERS: PCP Internal Medicine Geriatric Medicine; Visit Provider Nurse Practitioner Family
DX: J44.9 Chronic obstructive pulmonary disease, unspecified (principal); Z87.891 Personal history of nicotine dependence
CPT/HCPCS: 99214

== ENCOUNTER → 2024-04-23 10:41 | Outpatient (BNVA) | payer MEDICARE, SELFPAY | PROVIDERS: PCP Internal Medicine Geriatric Medicine; Visit Provider Nurse Practitioner Family | DX: J44.9 Chronic obstructive pulmonary disease, unspecified (principal); Z87.891 Personal history of nicotine dependence | CPT/HCPCS: 99212 ==

== ENCOUNTER 2024-06-05 10:39 | Outpatient (REF) | payer MEDICARE, SELFPAY ==
--- NOTE | 2024-06-05 10:52 | PFT_ITS ---
Flows: FEV1: 26 % of predicted at 0.54 L FVC: 78 % of predicted at 2.11 L FEV1/FVC: 25 % Bronchodilator response: Present Volumes: Total lung capacity: 131 % of predicted at 6.26 L Residual volume: 221 % of predicted at 4.06 L Slow vital capacity: 75 % of predicted at 2.20 L Expiratory reserve volume: 61 % of predicted at 0.42 L Diffusion capacity: Moderately decreased Impression: Very severe obstructive ventilatory defect with positive bronchodilator response. Increased total lung capacity suggests hyperinflation. Increased residual volume suggests air trapping. Decreased diffusion capacity suggests emphysema. MTDD
[2024-06-05 11:32] VITALS: PULSE 69
--- OUTSIDE RECORDS SUMMARY | 2024-06-05 12:47 | XMS_ITS | Encounter Summary ---
Author Organization [employer] Address [address] [place] [address] Care Team Providers Care Title Camera Operator Name Role Phone Name, Subhash GARDUNO Primary Care Provider [phone] Fernanda Reyes PharmD Unavailable Reason for Visit * Reason Comments Med Refill Encounter Details Date Type Department Care Team ([facility] Contact Info) Description 03/16/2023 Refill [facility] [address] [place] [address] Name, MD Subhash [address] [place] [address] Social History Tobacco Use Types Packs/Day Years [...] Description 06/13/2024 2:00 PM EDT Office Visit [facility] [address] [place] [phone] Name, MD Subhash [address] [place] [address] documented as of this encounter Goals Goal [...] documented as of this encounter Care Teams Title Camera Operator Relationship Specialty Start Date End Date Name, MD Subhash [address] [place] [address] [id number] PCP - General Family Medicine 04/23/21 Fernanda Reyes, PharmD [address] [place] [phone] Pharmacist Internal Medicine 12/21/21 documented as of this encounter
--- OUTSIDE RECORDS SUMMARY | 2024-06-05 12:47 | XMS_ITS | Clinical Summary ---
Author Organization [employer] Address [address] [facility] [facility] 7t [place] [address] Care Team Providers Care Floral Clerk Name Role Phone Name, Subhash GARDUNO Primary Care Provider [phone] Fernanda Reyes PharmD Unavailable [phone] Allergies No known active allergies Medications [...] Type Department Care Team Description 04/05/2024 Telephone [facility] [address] [place] [phone] Alfredo Lockhart [place] feb recalls from Last 3 Months Immunizations Name Administration Dates Next Due INFLUENZA INJECTABLE QUADRIV ALANT CCIIV4 MDCK Multi-dose vial 01/24/2017 Influenza High-dose Quadriva lent Preservative Free 01/13/2023,12/21/2021 Influenza Quadrivalent Adjuvanted 01/09/2020 Influenza, High Dose Seasona l, Preservative Free 02/15/2024,02/12/2021,01/17/2019,12/13 Influenza, IIV3, injectable 01/22/2016,0 12/23/2014,02/07/2014,12/21,12/18/2012,01/07/2012,12/29/2010 ,01/30/2010,12/06/2008,12/27/2006 Novel [id number], preservative-free 04/29/2009 Pfizer Covid-19 Vaccine 12+ 02/15/2024 [...] Description 06/13/2024 2:00 PM EDT Office Visit [facility] [address] [place] [address] Name, MD Subhash [address] [place] [address] Health Maintenance Due Date Last Done Comments [...] Lipid Panel 06/19/2027 06/18/2022, 07/03/2021 Pneumococcal Vaccine: 50+ Years Completed 02/12/2021, 01/24/2017, 12/27/2006 Hepatitis C [...] 10:52 AM EST) No Fernanda Reyes PharmD Procedures Procedure Name Priority Date/Time Associated [...] AM EDT) Cholesterol, Total 206(H) <200 mg/dL [facility] [employer] [facility] HDL Cholesterol 68 > OR = 40 mg/dL [facility] [employer] [place] [facility] [place] Triglycerides 99 <150 mg/dL [facility] [employer] [place] [facility] [place] LDL Cholesterol 117(H) mg/dL (calc) [facility] [employer] [facility] [place] [facility] [place] Comment: Reference range: <100 Desirable range <100 mg/dL for primary prevention; ?? <70 mg/dL for patients with CHD or diabetic patients with > or = 2 CHD risk factors. LDL-C is now calculated using the Bindu calculation, which is a validated novel method providing better accuracy than the Friedewald equation in the estimation of LDL-C. Mac HAQ et al. KYLE. 2013;310(19): 9165-8774 (http://education.[employer]ara[employer]/faq/CZQ723) Chol/HDLC Ratio 3.0 <5.0 (calc) [facility] [employer] [place] [facility] [place] Non-HDL Cholesterol 138(H) <130 mg/dL (calc) [facility] [employer] [place] [facility] [place] Comment: For patients with diabetes plus 1 major ASCVD risk factor, treating to a non-HDL-C goal of <100 mg/dL (LDL-C of <70 mg/dL) is considered a therapeutic option. Blood Venous blood specimen / Unknown 06/18/2022 8:13 AM EDT 06/18/2022 8:13 AM EDT Narrative [facility] - 06/18/2022 8:32 PM EDT FASTING:YES FASTING: YES Subhash Foley MD LAB BLOOD ORDERABLES Final Resul t [facility] [address], [place] [address] [facility] [employer] [place] [place] [address] [place] [address] * HEPATITIS C AB W/REFL TO HCV RNA, QN, PCR (07/03/2021 8:39 AM EDT) HEPATITIS C ANTIBODY NON-REACT EVE NON-REACT EVE [facility] INDEX 0.06 <1.00 [facility] Comment: ?? HCV antibody was non-reactive. There is no laboratory ?? evidence of HCV infection. ?? In most cases, no further action is required. However, if recent HCV exposure is suspected, a test for HCV RNA (test code 46939) is suggested. ?? For additional information please refer to http://education.[employer]faq/WIN58u9 (This link is being provided for informational/ educational purposes only.) ?? 07/03/2021 8:39 AM EDT us Subhash Foley MD HISTORICAL/NON ORDERABLE LABS Fi nal Result [facility] [address] from Last 3 Months or Most Recently Relevant to Health Maintenance Insurance [employer] MEDICARE ADVANTAGE HMO Care Teams Floral Clerk Relationship Specialty Start Date End Date Name, MD Subhash [address] [place] [address] PCP - General Family Medicine 04/23/21 Fernanda Reyes, JenD [address] [place] [address] Pharmacist Internal Medicine 12/21/21
--- OUTSIDE RECORDS SUMMARY | 2024-06-05 12:47 | XMS_ITS | Encounter Summary ---
Author Organization [employer] Address [address] [facility] 7t [place] [address] Care Team Providers Care Spreader Operator Name Role Phone Name, Subhash GARDUNO Primary Care Provider Fernanda Reyes PharmD Unavailable [phone] Encounter Details Date Type Department Care Team (Late Contact Info) Description 03/09/2022 Orders Only [facility] [address] [place] [address] Emily Rebolledo LPN Social History Tobacco Use [...] Description 06/13/2024 2:00 PM EDT Office Visit [facility] [address] [place] [address] NameSubhash MD [address] [place], [place] [phone] documented as of this encounter Visit Diagnoses Not on filedocumented in this encounter Care Teams Spreader Operator Relationship Specialty Start Date End Date NameSubhash MD [address] [place] [address] PCP - General Family Medicine 04/23/21 Fernanda Reyes, Pan [address] [place] [address] Pharmacist Internal Medicine 12/21/21 documented as of this encounter
--- OUTSIDE RECORDS SUMMARY | 2024-06-05 12:47 | XMS_ITS | Clinical Summary ---
Author Organization Patient Business Ser [facility] Address [address] [place] [address] Care Team Providers Care Truck Bench Mechanic Name Role Phone Unavailable Primary Care Provider Unavailabl e Encounters Date Type Department Care Team Description 06/04/2024 Telephone Lung Screening Program - [address] [place] [address] Chari Andrew MA Appointment (1st Notification) from Last 3 Months Surgical History Surgery Date Site/Laterality Comments UPPER GASTROINTESTINAL ENDOSCOPY 04/20/2010 PROCEDURE: DE UPPER GI ENDOSCOPY PERFORMED; COMMENT: gastritis/duodnitis with DUs; pos AJAY test..treated COLONOSCOPY 09/26/2017 PROCEDURE: HISTORICAL COLONOSCOPY; COMMENT: 5 mm rectal polyp; large cecal tumor: Adenocarcinoma. OTHER SURGICAL HISTORY 10/18/2017 Right PROCEDURE: DE COLECTOMY PARTIAL W/ANASTOMOSIS; COMMENT: right hemicolectomy COLONOSCOPY 09/20/2018 PROCEDURE: HISTORICAL COLONOSCOPY; COMMENT: 6 mm rectal polyp: Nonneoplastic granulation tissue. 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 pylori infection 07/06/2010 DX:H. pylori infection Gastritis and duodenitis 07/06/2010 DX:Jojo ritis and duodenitis Esophageal reflux DX:Esophageal reflux Chronic obstructive airway d isease (CMS/HCC) 11/10/2006 DX:Chronic obstructive airwa y disease ([facility]); COMMENT: PFT 2011: Very severe COPD. Cancer, colon (CMS/HCC) 09/27/2017 DX:Cance r, colon ([facility]); COMMENT: 09/27/2017: Adenocarcinoma of the cecum. Family [...] Recorded Sex Assigned at Not on file Legal Sex Male 3:24 PM EST Gender Identity Not on file Sexual Orientation Not on file Obstetrics History Plan of Treatment Upcoming Encounters Date Type Department Care Team (Late st Contact Info) Description 06/18/2024 11:30 AM EDT Appointment [facility] CT Scan [address] [place] [address] Health Maintenance Due Date Last Done Comments Hepatitis A Vaccines (1 of 2 - Risk 2-dose series) 1969 Colorectal Cancer Screening: Colonoscopy 04/07/2020 Falls Risk Assessment 04/07/2020 Hepatitis C Screening 04/07/2020 Medicare Annual Wellness Visit 04/07/2020 Social Influencers of Health Screening 04/07/2020 Zoster Vaccines (2 of 2) 03/22/2022 01/25/2022 DTaP,Tdap,and Td Vaccines (4 - Td or Tdap) 09/10/2023 09/09/2013, 08/07/2013, 09/09/2004 Depression Screening 05/13/2024 05/13/2023 Lung Cancer Screening (Low Dose CT) 06/19/2024 06/20/2023, 11/16/2021, 09/12/2020 Hypertension/CHF/CAD Annual BMP Blood Test 12/15/2024 12/16/2023 Cholesterol Screening (Lipid Panel) 06/19/2027 06/18/2022 Abdominal Aortic Aneurysm (AAA) Screen Completed 02/02/2017 Pneumococcal Vaccine: 50+ Years Completed 02/12/2021, 01/24/2017, 12/27/2006 RSV Immunization [...] patient's age to complete this topic Meningococcal B Vacine Aged Out No lo nger eligible based on patient's age to complete [...] AM EDT Narrative 06/20/2023 10:06 AM EDT [facility] Diagnostic Imaging Department [address] [place] [address] Patient: ??LISA,DONNA ?/Age/Sex: 1950 - 73 - M Unit#: ??[id number] ? Location/Status: ??SPDICATLS/REG CLI ? Mnemonic/Ordering Site: ??CTLUNGLD/SPCT Ordering Physician: ??JASEN AHMADI MD CT Lung Screening Low Dose - 06/18/[address] Report Status:Signed PROCEDURE: CT chest lung cancer [...] Procedure Note Luis Machado MD - 11/14/2023 [facility] Diagnostic Imaging Department [address] [place], [place] [address] Patient: DONNA KOROMA /Age/Sex: 1950 - 73 - M Unit#: [id number] Location/Status: SPDICATLS/REG CLI Mnemonic/Ordering Site: [facility] Ordering Physician: JASEN AHMADI MD CT [...] Date/Time: 06/20/23 0959 Sign date/Time: 06/20/23 [address] Ahmadi MD [facility] CT PROCEDURES Final Result * US ABDOMINAL AORTA REAL TIME SCREEN [...] 7-8 mm. IMPRESSION: IMPRESSION: No evidence AAA. us Valeriano Brewer MD IM US PROCEDURES Final Result from Last 3 Months or Most Recently Relevant to Health Maintenance Insurance [employer] MEDICARE Advance Directives Documents on File Type Date Recorded Patient Dentist/Owner Expl anation Health Care Decision (hx) 05/31/2015 AD LR DIRECTIVE Health Care Decision (hx) 05/31/2015 AD LR DIRECTIVE Health Care Decision (hx) 05/31/2015 AD LR DIRECTIVE Health Care Decision (hx) 05/31/2015 AD LR DIRECTIVE
--- OUTSIDE RECORDS SUMMARY | 2024-06-05 12:47 | XMS_ITS | Encounter Summary ---
Author Organization [employer] Address [address] [facility] 7t [place] [address] Care Team Providers Care Senior Painter Name Role Phone Name, Subhash GARDUNO Primary Care Provider Fernanda Reyes PharmD Unavailable Encounter Details Date Type Department Care Team ([facility] Contact Info) Description 04/26/2022 Orders Only [facility] [address] [place] [phone] Fernanda Reyes, PharmD [address] [place] [address] Social History Tobacco Use Types Packs/Day Years [...] Upcoming Encounters Date Type Department Care Team ([facility] Contact Info) Description 06/13/2024 2:00 PM EDT Office Visit [facility] [address] [place] [phone] Name, MD Subhash [address] [place] [address] documented as of this encounter Goals Goal [...] on filedocumented in this encounter Care Teams Senior Painter Relationship Specialty Start Date End Date Name, MD Subhash [address] [place] [address] PCP - General Family Medicine 04/23/21 Fernanda Reyes, PharmD [address] [place] [address] Pharmacist Internal Medicine 12/21/21 documented as of this encounter
--- OUTSIDE RECORDS SUMMARY | 2024-06-05 12:47 | XMS_ITS | Encounter Summary ---
Author Organization [employer] Address [address] [place] [address] Care Team Providers Care Business Consult Name Role Phone Unavailable Primary Care Provider Unavailabl e Reason for Visit * Reason Onset Date Comments Appointment 06/04/2024 1st Notification Encounter Details Date Type Department Care Team ([facility] st Contact Info) Description 06/04/2024 Telephone Lung Screening Program - [address] [phone] Chari Andrew MA Appointment (1st Notification) Social History Tobacco Use Types Packs/Day Years [...] on file Sexual Orientation Not on file documented as of this encounter Progress Notes * Chari Andrew MA - 06/04/2024 1:22 PM EDT Thony Koroma was contacted by the Lung Cancer Screening Program today to confirm the appointment of their Lung Cancer Screening. The patient is currently scheduled to have their screening on Tuesday June 18, 2024, at 1130 AM at [facility]. No answer left message. For all screenings scheduled during the week, the patient will check in at Patient Registration on the first floor of the main hospital. For screenings that take place on the weekend or after 5pm, check-in directly in Radiology. The patient was given the Lung Cancer Screening Program phone number, , to contact if they have any additional questions, concerns or need to reschedule. Patients are encouraged to call our office and reschedule if they are exhibiting any cold-like symptoms, have recently been treated for Pneumonia or Influenza (the flu) or have had another CT of their Chest since their last screening. documented in this encounter Plan of Treatment Upcoming Encounters Date Type Department Care Team (Late st Contact Info) Description 06/18/2024 11:30 AM EDT Appointment [facility] CT Scan [address] [place] [address] documented as of this encounter Visit Diagnoses Not on filedocumented in this encounter
--- OUTSIDE RECORDS SUMMARY | 2024-06-05 12:47 | XMS_ITS | Encounter Summary ---
Author Organization [employer] Address [address] [facility] 7t [place] [address] Care Team Providers Care Landscaping Crew Leader Name Role Phone Subhash Foley MD Primary Care Provider Fernanda Reyes PharmD Unavailable [phone] Reason for Visit * Reason Comments Med Refill Encounter Details Date Type Department Care Team ([facility] Contact Info) Description 09/10/2022 Refill [facility] MEDICINE [address] [place] [phone] Subhash Foley MD [address] [place] [address] Social History Tobacco Use Types Packs/Day Years [...] Upcoming Encounters Date Type Department Care Team ([facility] Contact Info) Description 06/13/2024 2:00 PM EDT Office Visit [facility] MEDICINE [address] [place] [phone] Subhash Foley MD [address] [place] [address] documented as of this encounter Goals Goal [...] documented as of this encounter Care Teams Landscaping Crew Leader Relationship Specialty Start Date End Date Name, MD Subhash [address] [place] [address] PCP - General Family Medicine 04/23/21 Fernanda Reyes, JenD [address] [place] [address] Pharmacist Internal Medicine 12/21/21 documented as of this encounter
== END 2024-06-05 10:40 | disposition home or self-care (01) ==
LOC: HO.RESP 10:39
PROVIDERS: PCP Internal Medicine Geriatric Medicine; Visit Provider Nurse Practitioner Family
DX: J44.9 Chronic obstructive pulmonary disease, unspecified (principal)
CPT/HCPCS: 94010; 94640; 94727; 94729

== ENCOUNTER → 2024-06-05 10:52 | Outpatient (BNV) | payer MEDICARE, SELFPAY | PROVIDERS: PCP Internal Medicine Geriatric Medicine; Visit Provider Internal Medicine Pulmonary Disease | DX: J44.9 Chronic obstructive pulmonary disease, unspecified (principal) | CPT/HCPCS: 94060; 94727; 94729 ==

== ENCOUNTER 2024-06-06 09:09 | Outpatient (REF) | payer MEDICARE, SELFPAY ==
--- NOTE | ~2024-06-06 | CT_ITS ---
EXAMINATION: CT CHEST WITHOUT CONTRAST CLINICAL INFORMATION: Solitary pulmonary nodules. COMPARISON: None available. TECHNIQUE: Multidetector volumetric CT imaging of the chest was done. Axial MIP volume rendering provided. Sagittal and coronal reformatted images were obtained. This CT examination was performed using dose optimization techniques as appropriate, variously including the following: *Automated exposure control *Adjustment of mA and/or kV according to patient size (this includes techniques or standardized protocols for targeted exams where dose is matched to indication/reason for exam; i.e. extremities or head) *Use of iterative reconstruction technique. DLP: 133 mGy centimeter. 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 The upper extremities at both sides of the head. LUNGS: There is a 2 mm noncalcified pulmonary nodule in the peripheral right middle lobe. There is a 1 mm noncalcified pulmonary nodule abutting the left major fissure towards the left upper lobe. Linear attenuation abnormalities in the lung bases. No bronchiectasis. No honeycombing. Centrilobular emphysematous changes. Hyperinflated lungs. Respiratory airways is patent. MEDIASTINUM: 9 mm lymph node, right premainstem bronchus. No pericardial effusion. Calcified plaques throughout the thoracic aorta wall and its main branches and the coronary arteries. No gross aneurysm in the thoracic aorta. CORONARY ARTERY CALCIFICATION: Calcified plaques. PLEURA: Trace of right-sided pleural effusion. No pneumothorax. AXILLA: No lymphadenopathy. UPPER ABDOMEN: Small hiatal hernia. Calcified plaques in the abdominal aorta wall and the origin of the main renal arteries. OSSEOUS STRUCTURES: Multilevel spondylosis. No acute fracture or listhesis. No lytic or blastic lesions. No gross acute fracture. CT/CT chest wo IV con IMPRESSION: Low risk patients: No routine follow-up required. High risk patients: CT at 12 months Fleischner guidelines were followed. Electronically signed by: Lincoln Bautista MD 06/06/2024 10:43 AM EDT
--- OUTSIDE RECORDS SUMMARY | 2024-06-06 09:48 | XMS_ITS | Encounter Summary ---
Author Organization [employer] Address [address] [facility] 7t [place] [address] Care Team Providers Care Emergency Worker Name Role Phone Subhash Foley MD Primary Care Provider [phone] Fernanda Reyes PharmD Unavailable [phone] Reason for Visit * Reason Comments Med Refill Encounter Details Date Type Department Care Team ([facility] Contact Info) Description 09/10/2022 Refill [facility] MEDICINE [address] [place] [phone] Subhash Foley MD [address] [place] [phone] Social History Tobacco Use Types Packs/Day Years [...] Upcoming Encounters Date Type Department Care Team ([facility] Contact Info) Description 06/13/2024 2:00 PM EDT Office Visit [facility] MEDICINE [address] [place] [address] Subhash Foley MD [address] [place] [address] documented as of this encounter Goals Goal [...] documented as of this encounter Care Teams Emergency Worker Relationship Specialty Start Date End Date Name, MD Subhash [address] [place] [address] PCP - General Family Medicine 04/23/21 Fernanda Reyes, JenD [address] [place] [address] Pharmacist Internal Medicine 12/21/21 documented as of this encounter
--- OUTSIDE RECORDS SUMMARY | 2024-06-06 09:48 | XMS_ITS | Encounter Summary ---
Author Organization [employer] Address [address] [facility] [address] 7t [place] [address] Care Team Providers Care Hadoop Engineer Name Role Phone Name, Subhash GARDUNO Primary Care Provider [phone] Fernanda Reyes PharmD Unavailable [phone] Reason for Visit * Reason Comments Med Refill Encounter Details Date Type Department Care Team ([facility] Contact Info) Description 03/16/2023 Refill [facility] MEDICINE [address] [place], [place] [phone] Name, MD Subhash [address] [place] [address] Social History Tobacco Use Types Packs/Day Years [...] Description 06/13/2024 2:00 PM EDT Office Visit [facility] MED[facility]INE [address] [place] [address] Name, MD Subhash [address] [place] [address] documented as of this encounter Goals Goal [...] documented as of this encounter Care Teams Hadoop Engineer Relationship Specialty Start Date End Date Name, MD Subhash [address] [place] [address] [phone] PCP - General Family Medicine 04/23/21 Fernanda Reyes, PharmD [address] [place] [address] Pharmacist Internal Medicine 12/21/21 documented as of this encounter
--- OUTSIDE RECORDS SUMMARY | 2024-06-06 09:48 | XMS_ITS | Encounter Summary ---
Author Organization [employer] Address [address] [facility] 7t [place] [address] Care Team Providers Care Front Facer Name Role Phone Name, Subhash GARDUNO Primary Care Provider Fernanda Reyes PharmD Unavailable Encounter Details Date Type Department Care Team ([facility] Contact Info) Description 04/26/2022 Orders Only [facility] MEDICINE [address] [place] [phone] Fernanda Reyes, PharmD [address] [place] [address] Social History Tobacco Use Types Packs/Day Years [...] Upcoming Encounters Date Type Department Care Team ([facility] Contact Info) Description 06/13/2024 2:00 PM EDT Office Visit [facility] MEDICINE [address] [place] [address] Name, MD Subhash [address] [place] [address] documented as of this encounter Goals Goal [...] on filedocumented in this encounter Care Teams Front Facer Relationship Specialty Start Date End Date Name, MD Subhash [address] [place] [address] PCP - General Family Medicine 04/23/21 Fernanda Reyes, PharmD [address] [place] [address] Pharmacist Internal Medicine 12/21/21 documented as of this encounter
--- OUTSIDE RECORDS SUMMARY | 2024-06-06 09:48 | XMS_ITS | Clinical Summary ---
Author Organization [employer] Address [address] [facility] 7t [place] [address] Care Team Providers Care Psychiatrist Name Role Phone Name, Subhash GARDUNO Primary Care Provider [phone] Fernanda Reyes PharmD Unavailable [phone] Allergies No known active allergies Medications [...] Type Department Care Team Description 04/05/2024 Telephone [facility] MED[facility]INE [address] [place] [address] Alfredo Lockhart DC feb recalls from Last 3 Months Immunizations Name Administration Dates Next Due INFLUENZA INJECTABLE QUADRIV ALANT CCIIV4 MDCK Multi-dose vial 01/24/2017 Influenza High-dose Quadriva lent Preservative Free 01/13/2023,12/21/2021 Influenza Quadrivalent Adjuvanted 01/09/2020 Influenza, High Dose Seasona l, Preservative Free 02/15/2024,02/12/2021,01/17/2019,12/13 Influenza, IIV3, injectable 01/22/2016,0 12/23/2014,02/07/2014,12/21,12/18/2012,01/07/2012,12/29/2010 ,01/30/2010,12/06/2008,12/27/2006 Novel [id number], preservative-free 04/29/2009 Pfizer Covid-19 Vaccine 12+ 02/15/2024 [...] 06/13/2024 2:00 PM EDT Office Visit [facility] [address] [place] [address] Name, MD Subhash [address] [place] [address] Health Maintenance Due Date Last Done Comments [...] AM EDT) Cholesterol, Total 206(H) <200 mg/dL [facility] HDL Cholesterol 68 > OR = 40 mg/dL [facility] [employer] Triglycerides 99 <150 mg/dL [facility] [employer] LDL Cholesterol 117(H) mg/dL (calc) [facility] [employer] Comment: Reference range: <100 Desirable range <100 mg/dL for primary prevention; ?? <70 mg/dL for patients with CHD or diabetic patients with > or = 2 CHD risk factors. LDL-C is now calculated using the Bindu calculation, which is a validated novel method providing better accuracy than the Friedewald equation in the estimation of LDL-C. Mac HAQ et al. KYLE. 2013;310(19): 2198-6750 (http://education.Haha [employer]inche/faq/XGN635) Chol/HDLC Ratio 3.0 <5.0 (calc) [facility] [employer] Non-HDL Cholesterol 138(H) <130 mg/dL (calc) [employer] Comment: For patients with diabetes plus 1 major ASCVD risk factor, treating to a non-HDL-C goal of <100 mg/dL (LDL-C of <70 mg/dL) is considered a therapeutic option. Blood Venous blood specimen / Unknown 06/18/2022 8:13 AM EDT 06/18/2022 8:13 AM EDT Narrative [facility] - 06/18/2022 8:32 PM EDT FASTING:YES FASTING: YES Subhash Foley MD LAB BLOOD ORDERABLES Final Resul t [facility] [address], [place] [address] [facility] [employer] [address] [place] [address] * HEPATITIS C AB W/REFL TO HCV [...] a test for HCV RNA (test code 89100) is suggested. ?? For additional information please refer to http://education.[employer]/faq/UPW13v1 (This link is being provided for informational/ educational purposes only.) ?? 07/03/2021 8:39 AM EDT us Subhash Foley MD HISTORICAL/NON ORDERABLE LABS Fi nal Result [facility] [address] from Last 3 Months or Most Recently Relevant to Health Maintenance Insurance [employer] MEDICARE ADVANTAGE HMO Care Teams Psychiatrist Relationship Specialty Start Date End Date Name, MD Subhash [address] [place] [address] PCP - General Family Medicine 04/23/21 Fernanda Reyes, JenD [address] [place] [address] Pharmacist Internal Medicine 12/21/21
--- OUTSIDE RECORDS SUMMARY | 2024-06-06 09:48 | XMS_ITS | Clinical Summary ---
Author Organization [employer] [facility] Address [address] [place] [address] Care Team Providers Care Quality Control Chemist Name Role Phone Unavailable Primary Care Provider Unavailabl e Encounters Date Type Department Care Team Description 06/04/2024 Telephone Lung Screening Program - [address] [place] [address] Chari Andrew MA Appointment (1st Notification) from Last 3 Months Surgical History Surgery Date Site/Laterality Comments UPPER GASTROINTESTINAL ENDOSCOPY 04/20/2010 PROCEDURE: IA UPPER GI ENDOSCOPY PERFORMED; COMMENT: gastritis/duodnitis with DUs; pos AJAY test..treated COLONOSCOPY 09/26/2017 PROCEDURE: HISTORICAL COLONOSCOPY; COMMENT: 5 mm rectal polyp; large cecal tumor: Adenocarcinoma. OTHER SURGICAL HISTORY 10/18/2017 Right PROCEDURE: IA COLECTOMY PARTIAL W/ANASTOMOSIS; COMMENT: right hemicolectomy COLONOSCOPY [...] (CMS/HCC) 11/10/2006 DX:Chronic obstructive airwa y disease ([facility]); COMMENT: PFT 2011: Very severe COPD. Cancer, colon (CMS/HCC) 09/27/2017 DX:Cance r, colon ([facility]); COMMENT: 09/27/2017: Adenocarcinoma of the cecum. Family [...] Info) Description 06/18/2024 11:30 AM EDT Appointment [facility] CT Scan [address] [place] [address] Health Maintenance Due Date Last [...] AM EDT Narrative 06/20/2023 10:06 AM EDT [facility] Diagnostic Imaging Department [address] [place] [address] Patient: ??LISA,DONNA ?/Age/Sex: 1950 - 73 - M Unit#: ??[id number] ? Location/Status: ??SPDICATLS/REG CLI ? Mnemonic/Ordering Site: [...] Procedure Note Luis Machado MD - 11/14/2023 [facility] Diagnostic Imaging Department [address] [place], [place] [address] Patient: DONNA KOROMA /Age/Sex: 1950 - 73 - M Unit#: [id number] Location/Status: SPDICATLS/REG CLI Mnemonic/Ordering Site: 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
--- OUTSIDE RECORDS SUMMARY | 2024-06-06 09:48 | XMS_ITS | Encounter Summary ---
Author Organization [employer] Address [address] [place] [address] Care Team Providers Care Telegraph Equipment Maintainer Name Role Phone Unavailable Primary Care Provider Unavailabl e Reason for Visit * Reason Onset Date Comments Appointment 06/04/2024 1st Notification Encounter Details Date Type Department Care Team ([facility] st Contact Info) Description 06/04/2024 Telephone Lung Screening Program - [address] [phone] Chari Andrew MA Appointment (1st Notification) Social [...] Andrew MA - 06/04/2024 1:22 PM EDT Tohny Koroma was contacted by the Lung Cancer Screening Program today to confirm the appointment of their Lung Cancer Screening. The patient is currently scheduled to have their screening on Tuesday June 18, 2024, at [address] [facility]. No answer left message. For all screenings [...] Info) Description 06/18/2024 11:[address] [facility] CT Scan [address] [place] [address] documented as of this encounter Visit Diagnoses Not on filedocumented in this encounter
--- OUTSIDE RECORDS SUMMARY | 2024-06-06 09:48 | XMS_ITS | Encounter Summary ---
Author Organization [employer] Address [address] [facility] 7t [place] [address] Care Team Providers Care Clinical Sciences Professor Name Role Phone Name, Subhash GARDUNO Primary Care Provider Ferannda Reyes PharmD Unavailable Encounter Details Date Type Department Care Team (Late Contact Info) Description 03/09/2022 Orders Only [facility] [address] [place] [phone] Emily Rebolledo LPN Social History Tobacco Use [...] Description 06/13/2024 2:00 PM EDT Office Visit [facility] MEDICINE [address] [place] [phone] NameSubhash MD [address] [place], [place] [phone] documented as of this encounter Visit Diagnoses Not on filedocumented in this encounter Care Teams Clinical Sciences Professor Relationship Specialty Start Date End Date NameSubhash MD [address] [place] [address] PCP - General Family Medicine 04/23/21 Fernanda Reyes, Pan [address] [place] [address] Pharmacist Internal Medicine 12/21/21 documented as of this encounter
== END 2024-06-06 09:10 | disposition home or self-care (01) ==
LOC: HO.CT 09:09
PROVIDERS: PCP Internal Medicine Geriatric Medicine; Visit Provider Nurse Practitioner Family
DX: R91.1 Solitary pulmonary nodule (principal)
CPT/HCPCS: 71250

== ENCOUNTER → 2024-06-06 09:11 | Outpatient (BNV) | payer MEDICARE, SELFPAY | PROVIDERS: PCP Internal Medicine Geriatric Medicine; Visit Provider Radiology Diagnostic Radiology | DX: R91.1 Solitary pulmonary nodule (principal) | CPT/HCPCS: 71250 ==

== ENCOUNTER 2024-10-08 09:46 | Outpatient (AMB) | payer MEDICARE, SELFPAY ==
--- NOTE | 2024-10-08 10:02 | A.OFFVIS_ITS ---
Vital Signs 10/08/24 10:03 Height 5 ft 11 in Weight 135 lb 9.349 oz BMI 18.9 BP 132/79 Blood Pressure Location Lt brachial Position Sitting Respiration 18 Pulse 71 Pulse Source Pulse Oximeter Pulse Oximetry (%) 94 Oxygen Delivery Method Room Air Intake Visit Reasons: COPD Air Breaker Operator Required: No Allergies No Known Allergies (No Known Allergies*) Allergy (Verified 10/08/24 10:02) HPI HPI COPD: Details: Thony is a pleasant 74 year old male, former smoker, quit in 2009 with 50 pack year history, with underlying COPD and HTN. Since the last visit he contracted a COVID-19 infection in early August, which he managed at home without requiring hospitalization or urgent care visits. The patient uses Symbicort and Spiriva inhalers daily, which have been effective in managing his symptoms. He currently denies cough, shortness of breath, or wheezing, and reports feeling good with his breathing. His last pulmonary function test in May indicated very severe COPD. He monitors his oxygen saturation at home, with readings ranging from 97% to as low as 87%. He does not use supplemental oxygen regularly but is advised to use it when his saturation drops into the 80s. [facility] Medical History (Updated 04/23/24 @ 13:17 by Bruna Schulte NP) Right inguinal hernia Hypercholesteremia COPD (chronic obstructive pulmonary disease) HTN (hypertension) Surgical History (System 05/17/23 @ 15:22 by Kelli Davison) History of right inguinal hernia repair History of cataract surgery History of hip surgery History of colon surgery Social History Alcohol intake: current Alcohol intake frequency: holidays/special occasions only Patient Tobacco Use Status: Former Tobacco user Tobacco use type: Cigarette Current occupational status: retired and disabled 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 Review of Systems Const Denies chills, Denies excessive sweating, Denies fever(s), Denies headache(s) and Denies night sweats Eyes Denies dry eyes, Denies irritation and Denies itchy eyes ENT Reports Normal hearing present, Denies headache(s), Denies nasal congestion, Denies nasal discharge, Denies post nasal drip and Denies sore throat Card Denies chest pain, Denies chest pain at rest, Denies chest pain with activity, Denies claudication, Denies leg edema, Denies dyspnea, Denies dyspnea on exertion, Denies orthopnea and Denies paroxysmal nocturnal dyspnea Resp Denies chest congestion, Denies cough, Denies excessive phlegm production, Denies pain on inspiration, Denies pain with cough, Denies dyspnea, Denies dyspnea on exertion, Denies stridor and Denies wheezing Musc Denies myalgias Neuro Reports Normal hearing present and Denies headache(s) Endo Denies excessive sweating Refugio/Lymph Denies lymphadenopathy Aller/Immun Denies itchy eyes, Denies seasonal rhinorrhea and Denies wheezing Physical Exam Vital Signs: Last Vital Signs Pulse 71 10/08/24 10:03 Resp 18 10/08/24 10:03 BP 132/79 10/08/24 10:03 Pulse Ox 94 10/08/24 10:03 Oxygen Delivery Method Room Air 10/08/24 10:03 BMI result Body Mass Index 18.9 Const General: cooperative, comfortable, no acute distress, well developed and alert Orientation/consciousness: patient oriented x3 Limitations: no limitations HEENT Head: Yes normal to inspection, Yes normocephalic and Yes atraumatic Ears: hearing grossly normal bilaterally and external ears normal Eyes General: appearance normal, both eyes and all related structures Eyelids: Yes eyelids normal Sclerae: sclerae normal EOM: EOMs intact bilaterally Neck Neck: Yes normal visual inspection and Yes no lymphadenopathy Lymphatic: no lymphadenopathy noted Chest Chest palpation & inspection: normal inspection of the chest Resp Effort & Inspection: normal respiratory effort, able to speak in complete sentences, no audible wheezes, no cough, no stridor, not tachypneic, no tripod positioning and no use of accessory muscles Auscultation: diminished lung sounds Cardio Jugular venous distension: no JVD Rate: regular rate Rhythm: regular rhythm Skin Other: warm, dry General skin exam: no rashes or lesions noted Neuro General: patient oriented x3 Cranial nerves: Yes Normal hearing present Cognition (Neuro): normal cognition Gait exam (Neuro): Normal gait present Extrem General: Yes normal to inspection, Yes capillary refill normal, Yes no clubbing, cyanosis or edema and Yes no pedal edema Psych Appearance: grossly normal and well kempt Speech and movement: Normal speech and movement present and Clear speech present Affect: normal affect Attitude: cooperative Thought process: Normal thought process present Thought content: Normal thought content present Insight: Good insight present (Psych) Judgement: Good judgement present (Psych) Results Reviewed Results Reviewed: [address] [address] [address] Scan Report Signed Patient: Thony Lee MR#: [id number] : 1950 Acct:[id number] Age/Sex: 74 / M ADM Date: 06/06/24 Loc: .CT Attending Dr: Bruna Schulte NP Ordering Physician: Bruna Schulte NP Date of Service: 06/06/24 Procedure(s): CT chest wo IV con Accession Number(s): [id number] cc: Name,Subhash GARDUNO; Bruna Schulte NP~ Report Number: [id number]: Total DLP = 33.00 mGy-cm EXAMINATION: CT CHEST WITHOUT CONTRAST CLINICAL INFORMATION: Solitary pulmonary nodules. COMPARISON: None available. TECHNIQUE: Multidetector volumetric CT imaging of the chest was done. Axial MIP volume rendering provided. Sagittal and coronal reformatted images were obtained. This CT examination was performed using dose optimization techniques as appropriate, variously including the following: *Automated exposure control *Adjustment of mA and/or kV according to patient size (this includes techniques or standardized protocols for targeted exams where dose is matched to indication/reason for exam; i.e. extremities or head) *Use of iterative reconstruction technique. DLP: 133 mGy centimeter. FINDINGS: FURNACE RELINER: Increased AP diameter. The upper extremities at both sides of the head. LUNGS: There is a 2 mm noncalcified pulmonary nodule in the peripheral right middle lobe. There is a 1 mm noncalcified pulmonary nodule abutting the left major fissure towards the left upper lobe. Linear attenuation abnormalities in the lung bases. No bronchiectasis. No honeycombing. Centrilobular emphysematous changes. Hyperinflated lungs. Respiratory airways is patent. MEDIASTINUM: 9 mm lymph node, right premainstem bronchus. No pericardial effusion. Calcified plaques throughout the thoracic aorta wall and its main branches and the coronary arteries. No gross aneurysm in the thoracic aorta. CORONARY ARTERY CALCIFICATION: Calcified plaques. PLEURA: Trace of right-sided pleural effusion. No pneumothorax. AXILLA: No lymphadenopathy. UPPER ABDOMEN: Small hiatal hernia. Calcified plaques in the abdominal aorta wall and the origin of the main renal arteries. OSSEOUS STRUCTURES: Multilevel spondylosis. No acute fracture or listhesis. No lytic or blastic lesions. No gross acute fracture. CT/CT chest wo IV con IMPRESSION: Low risk patients: No routine follow-up required. High risk patients: CT at 12 months Fleischner guidelines were followed. Electronically signed by: Lnicoln Bautista MD 06/06/2024 10:43 AM EDT Assessment & Plan Assessment & Plan (1) COPD (chronic obstructive pulmonary disease): Code(s): J44.9 - Chronic obstructive pulmonary disease, unspecified Category: Medical (2) Personal history of tobacco use: Code(s): Z87.891 - Personal history of nicotine dependence Category: Social Hx Plan Reviewed PFT which revealed very severe obstructive ventilatory defect with positive bronchodilator response. Increased total lung capacity suggests hyperinflation. Increased residual volume suggests air trapping. Decreased diffusion capacity suggests emphysema. Reviewed chest CT which revealed emphysematous changes as well as a 2 mm noncalcified pulmonary nodule in the peripheral right middle lobe and a 1 mm noncalcified pulmonary nodule abutting the left major. Will repeat in one year to assess stability. Discussed with the patient the importance of continuing his current inhaler regimen with Symbicort and Spiriva to manage his COPD effectively. Advised patient to monitor his oxygen saturation at home and the use of supplemental oxygen when necessary, to maintain >90%. Explained the process for the overnight oxygen saturation test and will send to [facility]. All questions were answered and patient is in agreement of plan. Will follow-up in 3 months or sooner if needed. Orders: Orders CT chest wo IV con 8 Months R91.1 - Solitary pulmonary nodule Coding Level of Care Code Est Pt Level 4 (05465) Diagnoses COPD (chronic obstructive pulmonary disease) J44.9 Personal history of tobacco use Z87.891
[2024-10-08 10:03] VITALS: BP 132/79; PULSE 71; RESP 18; O2SAT 94; BMI 18.9
--- OUTSIDE RECORDS SUMMARY | 2024-10-08 10:15 | XMS_ITS | Clinical Summary ---
Author Organization Patient Business [facility] Address [address] [place] [address] Care Team Providers Care Shrimp Boat Captain Name Role Phone Unavailable Primary Care Provider Unavailabl e Surgical History Surgery Date Site/Laterality Comments UPPER GASTROINTESTINAL ENDOSCOPY 04/20/2010 PROCEDURE: [place] UPPER GI ENDOSCOPY PERFORMED; COMMENT: gastritis/duodnitis with DUs; pos AJAY test..treated COLONOSCOPY 09/26/2017 PROCEDURE: HISTORICAL COLONOSCOPY; COMMENT: 5 mm rectal polyp; large cecal tumor: Adenocarcinoma. OTHER SURGICAL HISTORY 10/18/2017 Right PROCEDURE: [place] COLECTOMY PARTIAL W/ANASTOMOSIS; COMMENT: right hemicolectomy COLONOSCOPY 09/20/2018 PROCEDURE: HISTORICAL COLONOSCOPY; COMMENT: 6 mm rectal polyp: Nonneoplastic granulation tissue. Medical History Medical History Date Comments Other amyloidosis ([facility]/HCC V 24, [facility] V28) 10/19/2006 DX:Other amyloidosis (HCC) Tobacco use disorder 11/10/2006 DX:Tobacco use disorder H. pylori infection 07/06/2010 DX:H. pylori infection Gastritis and duodenitis 07/06/2010 DX:Jojo ritis and duodenitis Esophageal reflux DX:Esophageal reflux Chronic obstructive airway d isease (CMS/HCC V24, CMS/HCC V28) 11/10/2006 DX:Chronic obstructive airw ay disease (HCC); COMMENT: PFT 2011: Very severe COPD. Cancer, colon (CMS/HCC V24, CMS/HCC V28) 09/27/2017 DX:Cancer, colon (HCC); COMM ENT: 09/27/2017: Adenocarcinoma of the cecum. Family History [...] (Low Dose CT) 06/19/2024 06/20/2023, 11/16/2021, 09/12/2020 COVID-19 Vaccine (5 - Moderna risk 2023- season) 2024 02/15/2024, 03/24/2021, 07/02/2020, Additional history exists Influenza Vaccine (#1) 2024 , 01/13/2023, 12/21/2021, Additional history exists Hypertension/CHF/CAD Annual BMP Blood Test 12/15/2024 12/16/2023 Cholesterol Screening (Lipid Panel) 06/19/2027 06/18/2022 Abdominal Aortic Aneurysm (AAA) Screen Completed 02/02/2017 Pneumococcal Vaccine: 50+ Years Completed 02/12/2021, 01/24/2017, 12/27/2006 RSV Immunization Adult Patients Completed 05/13/2023 HIB Vaccines Aged Out No longer eligi [...] age to complete this topic Meningococcal B Vaccine Aged Out No l onger eligible based on patient's age to complete [...] AM EDT Narrative 06/20/2023 10:06 AM EDT [facility] Diagnostic Imaging Department [address] [place], [place] [id number] Patient: DONNA KOROMA D.O.B./Age/Sex: 1950 - 73 - M Unit#: [id number] Location/Status: [facility] CLI Mnemonic/Ordering Site: [facility] Ordering Physician: JASEN AHMADI MD CT Lung Screening Low Dose - 06/18/23 - 921 Report Status:Signed PROCEDURE: CT chest lung cancer screening low dose examination. INDICATION: CT lung screening. TECHNIQUE: Chest CT without intravenous contrast was performed. Low-dose examination was performed. Reformatted images were evaluated. COMPARISON: CT of the chest May 2022 FINDINGS: NODULES: Stable appearance of a 5 mm nodule in the periphery of the right middle lobe (series 3 image 167). LUNGS: Significant emphysematous changes. OTHER: Limited views of the upper abdomen appear normal. Mild coronary atherosclerotic disease. Small, nonspecific mediastinal nodes. Atherosclerotic disease of the aorta without aneurysm. IMPRESSION: Stable emphysematous disease and small nodule in the right chest. Lung-RADS 2. Follow up examination is advised in one year. Dictating Physician: LUIS MACHADO MD Electronically Signed by: LUIS MACHADO MD Dic Date/Time: 06/20/23 0959 Sign date/Time: 06/20/23 1006 Procedure Note Luis Machado MD - 11/14/2023 [facility] Diagnostic Imaging Department [address] [place], [place] [id number] Patient: DONNA KOROMA /Age/Sex: 1950 - 73 - M Unit#: [id number] Location/Status: [facility]/REG CLI Mnemonic/Ordering Site: [facility] Ordering Physician: JASEN AHMADI MD CT Lung Screening Low Dose - 06/18/23 - 0922 Report Status:Signed PROCEDURE: CT chest lung cancer [...] 1006 Jasen Ahmadi MD IMG CT PROCEDURES Final Result * US ABDOMINAL [...] AAA. 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
--- OUTSIDE RECORDS SUMMARY | 2024-10-08 10:15 | XMS_ITS | Encounter Summary ---
Author Organization [employer] Address [address] [place] [address] [address] [place] [address] Care Team Providers Care Ice Rink Attendant Name Role Phone Name, Subhash GARDUNO Primary Care Provider [phone] Fernanda Reyes PharmD Unavailable Encounter Details Date Type Department Care Team ([facility] Contact Info) Description 04/26/2022 Orders Only [facility] [address] [place] [id number] Fernanda Reyes, PharmD [address] [place] [phone] Social History Tobacco Use Types Packs/Day Years [...] Upcoming Encounters Date Type Department Care Team ([facility] Contact Info) Description 12/04/2024 10:45 AM EDT Office Visit [facility] [address] [place] [phone] Name, MD Subhash [address] [place] [phone] documented as of this encounter Goals Goal Patient Goal Type Associated Problems Recent Progress Patient-Stated? Author Record your blood pressure once a week Blood Pressure No Fernanda Reyes PharmD Note: Continue periodic SMBP and record values (including HR) for review in follow up. Blood Pressure < 140/90 Blood Pressure 168/78(2024 1:52 PM EDT) No Fernanda Reyes PharmD documented as of this encounter Visit Diagnoses Not on filedocumented in this encounter Care Teams Ice Rink Attendant Relationship Specialty Start Date End Date Name, MD Subhash [address] [place] [address] PCP - General Family Medicine 04/23/21 Fernanda Reyes, PharmD [address] [place] [address] Pharmacist Internal Medicine 12/21/21 documented as of this encounter
== END 2024-10-08 10:13 | disposition home or self-care (01) ==
LOC: HO.HPS 09:47
PROVIDERS: PCP Internal Medicine Geriatric Medicine; Visit Provider Nurse Practitioner Family
DX: J44.9 Chronic obstructive pulmonary disease, unspecified (principal); Z87.891 Personal history of nicotine dependence
CPT/HCPCS: 99214

== ENCOUNTER → 2024-10-08 09:46 | Outpatient (BNVA) | payer MEDICARE, SELFPAY | PROVIDERS: PCP Internal Medicine Geriatric Medicine; Visit Provider Nurse Practitioner Family | DX: J44.9 Chronic obstructive pulmonary disease, unspecified (principal); Z87.891 Personal history of nicotine dependence; I10 Essential (primary) hypertension | CPT/HCPCS: 99212 ==

== ENCOUNTER 2024-12-14 08:07 | Outpatient (REF) | payer MEDICARE, SELFPAY ==
[2024-12-14 12:13] LABS: Anion Gap 12 (12-20); Blood Urea Nitrogen 14 mg/dL (9-16); Calcium 9.2 mg/dL (8.4-10.2); Carbon Dioxide 33 mmol/L (22-29); Chloride 103 mmol/L (96-108); Estimated Glomerular Filt Rate > 60; Potassium 3.6 mmol/L (3.3-5.1); Sodium 144 mmol/L (135-145)
== END 2024-12-14 08:08 | disposition home or self-care (01) ==
LOC: HO.HHCL 08:07
PROVIDERS: PCP Internal Medicine Geriatric Medicine; Visit Provider Internal Medicine Geriatric Medicine
DX: I10 Essential (primary) hypertension (principal)
CPT/HCPCS: 36415; 80048

== ENCOUNTER 2025-01-21 09:04 | Outpatient (AMB) | payer MEDICARE, SELFPAY ==
--- NOTE | 2025-01-21 09:26 | A.OFFVIS_ITS ---
Vital Signs 01/21/25 09:27 Height 5 ft 11 in Weight 136 lb 10.986 oz BMI 19.1 BP 130/62 Blood Pressure Location Lt brachial Position Sitting Pulse 77 Pulse Source Pulse Oximeter Pulse Oximetry (%) 92 Oxygen Delivery Method Room Air Intake Visit Reasons: COPD Allergies No Known Allergies (No Known Allergies*) Allergy (Verified 01/21/25 09:30) HPI HPI COPD: Details: Thony is a pleasant 74 year old male, former 50 pack year smoker, quit in 2009 with underlying severe COPD and HTN. He reports good control of respiratory symptoms on current regimen of Spiriva and Symbicort, using Albuterol once daily. He reports dyspnea with moderate exertion otherwise denies cough wheezing or chest tightness. He monitors his oxygen saturation at home, with readings ranging from 97% to as low as 92%. He has a POC at home however does not use regularly. Previously overnight oximetry ordered and reportedly patient declined however he does not recall and is interested in pursing. Prior chest CT 05/2024 revealed pulmonary nodules <2mm and referred to the lung screening program for further surveillance. He denies any visits to urgent care or hospitalizations related to respiratory distress since the last visit. 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 Review of Systems Const Denies chills, Denies excessive sweating, Denies fever(s), Denies headache(s) and Denies night sweats Eyes Denies dry eyes, Denies irritation and Denies itchy eyes ENT Reports Normal hearing present, Denies headache(s), Denies nasal congestion, Denies nasal discharge, Denies post nasal drip and Denies sore throat Card Denies chest pain, Denies chest pain at rest, Denies chest pain with activity, Denies claudication, Denies leg edema, Denies dyspnea, Reports dyspnea on exertion, Denies orthopnea and Denies paroxysmal nocturnal dyspnea Resp Denies chest congestion, Denies cough, Denies excessive phlegm production, Denies pain on inspiration, Denies pain with cough, Denies dyspnea, Reports dyspnea on exertion, Denies stridor and Denies wheezing Musc Denies myalgias Neuro Reports Normal hearing present and Denies headache(s) Endo Denies excessive sweating Refugio/Lymph Denies lymphadenopathy Aller/Immun Denies itchy eyes, Denies seasonal rhinorrhea and Denies wheezing Physical Exam Vital Signs: Last Vital Signs Pulse 77 01/21/25 09:27 BP 130/62 01/21/25 09:27 Pulse Ox 92 01/21/25 09:27 Oxygen Delivery Method Room Air 01/21/25 09:27 BMI result Body Mass Index 19.1 Const General: cooperative, comfortable, no acute distress, well developed and alert Nutritional Appearance: thin Orientation/consciousness: patient oriented x3 Limitations: ambulation with cane HEENT Head: Yes normal to inspection, Yes normocephalic and Yes atraumatic Ears: hearing grossly normal bilaterally and external ears normal Eyes General: appearance normal, both eyes and all related structures Eyelids: Yes eyelids normal Sclerae: sclerae normal EOM: EOMs intact bilaterally Neck Neck: Yes normal visual inspection and Yes no lymphadenopathy Lymphatic: no lymphadenopathy noted Chest Chest palpation & inspection: normal inspection of the chest Resp Effort & Inspection: normal respiratory effort, able to speak in complete sentences, no audible wheezes, no cough, no stridor, not tachypneic, no tripod positioning and no use of accessory muscles Auscultation: diminished lung sounds Cardio Jugular venous distension: no JVD Rate: regular rate Rhythm: regular rhythm Skin Other: warm, dry General skin exam: no rashes or lesions noted Neuro General: patient oriented x3 Cranial nerves: Yes Normal hearing present Cognition (Neuro): normal cognition Gait exam (Neuro): Normal gait present Extrem General: Yes normal to inspection, Yes capillary refill normal, Yes no clubbing, cyanosis or edema and Yes no pedal edema Psych Appearance: grossly normal and well kempt Speech and movement: Normal speech and movement present and Clear speech present Affect: normal affect Attitude: cooperative Thought process: Normal thought process present Thought content: Normal thought content present Insight: Good insight present (Psych) Judgement: Good judgement present (Psych) Assessment & Plan Assessment & Plan (1) COPD (chronic obstructive pulmonary disease): Code(s): J44.9 - Chronic obstructive pulmonary disease, unspecified Category: Medical (2) Personal history of tobacco use: Code(s): Z87.891 - Personal history of nicotine dependence Category: Social Hx Plan Discussed with the patient the importance of continuing his current inhaler regimen with Symbicort, Spiriva and Albuterol MDI. He is aware to call if symptoms change. Will resend overnight oximetry order to assess need for supplemental oxygen NOC. Will perform 6MWT at next visit and patient aware to maintain oxygen saturation >90-92%. Last chest CT performed 05/2024 which revealed multiple pulmonary nodules <2mm, will enter referral for the lung cancer screening program for further surveillance. All questions were answered and patient is in agreement of plan. Will follow-up in 3 months or sooner if needed. Orders: Orders Overnight Pulse Oximetry Today G47.34 - Idiopathic sleep related nonobstructive alveolar hypoventilation Referrals Lung Cancer Screening Referral Z87.891 - Personal history of nicotine dependence Medications: Refilled budesonide-formoterol 160-4.5 mcg/actuation (Symbicort) 2 puffs inhalation Q12H 10.2 ea 3RF tiotropium bromide 1.25 mcg/actuation (Spiriva Respimat) 2 puffs PO DAILY 4 mL 3RF Discontinued doxycycline hyclate Discontinued Reason: Patient Completed Course 100 mg PO BID 7 days 14 tabs 0RF prednisone Discontinued Reason: Patient Completed Course 40 mg (2 x 20 mg) PO DAILY 10 tabs 0RF Coding Level of Care Code Est Pt Level 4 (82003) Diagnoses COPD (chronic obstructive pulmonary disease) J44.9 Personal history of tobacco use Z87.891
[2025-01-21 09:27] VITALS: BP 130/62; PULSE 77; O2SAT 92; BMI 19.1
--- OUTSIDE RECORDS SUMMARY | 2025-01-21 09:57 | XMS_ITS | Encounter Summary ---
Author Organization [employer] Address [address] [place] [address] [address] [place] [address] Care Team Providers Care Court Clerk Name Role Phone Name, Subhash GARDUNO Primary Care Provider [phone] Fernanda Reyes PharmD Unavailable [phone] Reason for Visit * Reason Comments Med Refill Encounter Details Date Type Department Care Team ([facility] Contact Info) Description 09/10/2022 Refill [facility] [address] [place] [address] Name, MD Subhash [address] [place] [address] Social History Tobacco Use Types Packs/Day Years [...] as of this encounter Plan of Treatment Not on file documented as of this encounter Goals Goal Patient Goal Type Associated Problems Recent Progress Patient-Stated? Author Record your blood pressure once a week Blood Pressure No PuiaVirginiasa, PharmD Note: Continue periodic SMBP and record values (including HR) for review in follow up. Blood Pressure < 140/90 Blood Pressure 132/78(2024 10:53 AM EDT) No Fernanda Reyes, PharmD documented as of this encounter Visit Diagnoses Not on filedocumented in this encounter Additional Health Concerns Assessment Noted Time PHQ-9 Depression Total Score: 0 06/15/19 23 2:12 PM EDT documented as of this encounter Care Teams Court Clerk Relationship Specialty Start Date End Date Name, MD Subhash [address] [place] [address] PCP - General Family Medicine 04/23/21 Fernanda Reyes, Pan [address] [place] [address] Pharmacist Internal Medicine 12/21/21 documented as of this encounter
--- OUTSIDE RECORDS SUMMARY | 2025-01-21 09:57 | XMS_ITS | Encounter Summary ---
Author Organization [employer] Address [address] [place] [address] 7t [place] [address] Care Team Providers Care Lap Winder Name Role Phone Name, Subhash GARDUNO Primary Care Provider PuiaFernanda PharmD Unavailable [phone] Encounter Details Date Type Department Care Team ([facility] Contact Info) Description 04/26/2022 Orders Only [facility] [address] [place] [address] Puia, Fernanda, PharmD [address] [place] [address] Social History Tobacco Use Types Packs/Day Years [...] pressure once a week Blood Pressure No Puia, Fernanda, PharmD Note: Continue periodic SMBP and record values (including HR) for review in follow up. Blood Pressure < 140/90 Blood Pressure 132/78(2024 10:53 AM EDT) No Fernanda Reyes, PharmD documented as of this encounter Visit Diagnoses Not on filedocumented in this encounter Care Teams Lap Winder Relationship Specialty Start Date End Date Name, MD Subhash [address] [place] [address] PCP - General Family Medicine 04/23/21 Fernanda Reyes, PharmD [address] [place] [address] Pharmacist Internal Medicine 12/21/21 documented as of this encounter
--- OUTSIDE RECORDS SUMMARY | 2025-01-21 09:57 | XMS_ITS | Encounter Summary ---
Author Organization [employer] Address [address] [facility] 7t [place] [address] Care Team Providers Care Public Health Veterinarian Name Role Phone Name, Subhash GARDUNO Primary Care Provider [phone] Fernanda Reyes PharmD Unavailable [phone] Reason for Visit * Reason Comments Med Refill Encounter Details Date Type Department Care Team ([facility] Contact Info) Description 03/16/2023 Refill [facility] [address] [place] [address] Name, MD Subhash [address] [place] [address] Social History Tobacco Use Types Packs/Day Years [...] documented as of this encounter Care Teams Public Health Veterinarian Relationship Specialty Start Date End Date Name, MD Subhash [address] [place] [address] PCP - General Family Medicine 04/23/21 Fernanda Reyes, PharmD [address] [place] [address] Pharmacist Internal Medicine 12/21/21 documented as of this encounter
--- OUTSIDE RECORDS SUMMARY | 2025-01-21 09:57 | XMS_ITS | Clinical Summary ---
Author Organization Patient Business [facility] Address [address] [place] [address] Care Team Providers Care Gravity Prospecting Observer Name Role Phone Unavailable Primary Care Provider Unavailabl e Surgical History Surgery Date Site/Laterality Comments UPPER GASTROINTESTINAL ENDOSCOPY 04/20/2010 PROCEDURE: MI UPPER GI ENDOSCOPY PERFORMED; COMMENT: gastritis/duodnitis with DUs; pos AJAY test..treated COLONOSCOPY 09/26/2017 PROCEDURE: HISTORICAL COLONOSCOPY; COMMENT: 5 mm rectal polyp; large cecal tumor: Adenocarcinoma. OTHER SURGICAL HISTORY 10/18/2017 Right PROCEDURE: MI COLECTOMY PARTIAL W/ANASTOMOSIS; COMMENT: right hemicolectomy COLONOSCOPY 09/20/2018 PROCEDURE: HISTORICAL COLONOSCOPY; COMMENT: 6 mm rectal polyp: Nonneoplastic granulation tissue. Medical History Medical History Date Comments Other amyloidosis ([facility]/HCC V 24, [facility] V28) 10/19/2006 DX:Other amyloidosis (HCC) Tobacco use [...] Last Done Comments Colorectal Cancer Screening: Colonoscopy 1950 [place] Risk Assessment 04/07/2020 Hepatitis C Screening 04/07/2020 Medicare Annual Wellness Visit 04/07/2020 Social Influencers of Health Screening 04/07/2020 Zoster Vaccines (2 of 2) 03/22/2022 01/25/2022 DTaP,Tdap,and Td Vaccines (4 - Td or Tdap) 09/10/2023 09/09/2013, 08/07/2013, 09/09/2004 Depression Screening 03/28/2024 Lung Cancer Screening (Low Dose CT) 06/19/2024 [...] AM EDT Narrative 06/20/2023 10:06 AM EDT [facility] Diagnostic Imaging Department [address] [place] [address] Patient: LISADONNA /Age/Sex: 1950 - 73 - M Unit#: [id number] Location/Status: SPDICATLS/REG CLI Mnemonic/Ordering Site: [facility] Ordering Physician: JASEN AHMADI MD CT Lung [...] Procedure Note Luis Machado MD - 11/14/2023 [facility] Diagnostic Imaging Department [address] [place] [address] Patient: DONNA KOROMA D.O.B./Age/Sex: 1950 - 73 - M Unit#: [id number] Location/Status: SPDICATLS/REG CLI Mnemonic/Ordering Site: [facility] Ordering Physician: JASEN AHMADI MD CT [...] date/Time: 06/20/23 1006 us Jasen Ahmadi MD IMG CT PROCEDURES Final [...] No evidence AAA. us Valeriano Brewer MD IMG US PROCEDURES Final Result from Last 3 Months or Most Recently Relevant to Health Maintenance Insurance [employer] [place] [address] Advance Directives Documents on File Type Date Recorded Patient Manager Pmo Expl anation Health Care Decision (hx) 05/31/2015 AD LR DIRECTIVE Health Care Decision (hx) 05/31/2015 AD LR DIRECTIVE Health Care Decision (hx) 05/31/2015 AD LR DIRECTIVE Health Care Decision (hx) 05/31/2015 AD LR DIRECTIVE
--- OUTSIDE RECORDS SUMMARY | 2025-01-21 09:58 | XMS_ITS | Encounter Summary ---
Author Organization [facility] Address [address] [place] [address] 7t [place] [address] Care Team Providers Care Biotechnician Name Role Phone Name, Subhash GARDUNO Primary Care Provider [phone] Fernanda Reyes PharmD Unavailable Encounter Details Date Type Department Care Team ([facility] Contact Info) Description 03/09/2022 Orders Only [facility] [address] [place] [address] Emily Rebolledo LPN Social History Tobacco Use [...] on file documented as of this encounter Visit Diagnoses Not on filedocumented in this encounter Care Teams Biotechnician Relationship Specialty Start Date End Date Name, MD Subhash [address] [place] [address] PCP - General Family Medicine 04/23/21 Fernanda Reyes, PharmD [address] [place] [address] Pharmacist Internal Medicine 12/21/21 documented as of this encounter
--- OUTSIDE RECORDS SUMMARY | 2025-01-21 09:58 | XMS_ITS | Clinical Summary ---
Author Organization [employer] Address [address] [place] [address] 7t [place] [address] Care Team Providers Care Train Examiner Name Role Phone Name, Subhash GARDUNO Primary Care Provider [phone] Fernanda Reyes PharmD Unavailable [phone] Allergies No known active allergies Medications latanoprost (Xalatan) 0.005 % ophthalmic solution Administer 1 drop into both eyes 1 (one) time each day. 03/31/19 22 Active SM All Day Allergy Relief 10 MG tablet Take 10 mg by mouth 1 (one) time each day. 02/03/20 22 Active brimonidine (AlphaGAN P) 0.2 % ophthalmic solution Use 1 drop in each eye twice daily 03/31/19 23 Active Symbicort 160-4.5 MCG/ACT inhaler Inhale 2 puffs every 12 (twelve) hours. 05/22/19 25 Active Spiriva Respimat 1.25 MCG/ACT inhaler Inhale 2 puffs Once per day. 1 each 06/14/19 25 Active mometasone (Elocon) 0.1 % ointmentIndicat ions:Xerosis of skin Apply topically Once per day. 45 g 2 06/14/19 25 2025 Active albuterol 108 (90 Base) MCG/ACT inhaler USE 2 INHALACIONES POR LA BOCA CUATRO VECES AL STEVO CUANDO SEA NECESARIO PARA LAS SIBILANCIAS , PARA LA TOS Y LA FALTA DE RESPIRACION 54 g 2 09/19/19 25 Active losartan (Cozaar) 25 MG tabletIndicatio ns:Essential hypertension TOME 1 TABLETA POR LA BOCA CADA STEVO 100 tablet 2 01/09/20 25 Active atenolol (Tenormin) 25 MG tabletIndicatio ns:Essential hypertension TOME 1 TABLETA POR LA BOCA CADA MANANA 100 tablet 2 01/09/20 25 Active losartan (Cozaar) 25 MG tabletIndicatio ns:Essential hypertension TAKE 1 TABLET BY MOUTH EVERY DAY 100 tablet 2 01/10/20 24 2024 Discontinued atenolol (Tenormin) 25 MG tabletIndicatio ns:Essential hypertension TAKE 1 TABLET MY MOUTH EVERY MORNING 100 tablet 2 03/05/20 24 2024 Discontinued Active Problems Problem Noted Date Diagnosed Date 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 Patient had colectomy in 2018. Last Colonoscopy August 2018, findings non-neoplastic inflammatory, recommended repeat in 3 years (due August 2021). 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 Encounters Date Type Department Care Team Description 01/08/2025 Refill [facility] [address] [place] [phone] Name, MD Subhash Essential hypertension 12/04/2024 10:45 AM EDT Office Visit [facility] [address] [place] [phone] Name, MD Subhash Chronic obstructive pulmonary disease, unspecified COPD type (CMS/HCC) (Primary Dx); Essential hypertension; Encounter for immunization 12/04/2024 Travel 11/30/2024 Telephone [facility] [address] [place] [address] [phone] Name, MD Subhash CHARTPREP 11/27/2024 Travel from Last 3 Months Immunizations Immunization Administration Dates Next Due INFLUENZA INJECTABLE QUADRIV ALANT CCIIV4 MDCK Multi-dose vial 01/24/2017 Influenza High-dose Quadriva lent Preservative Free 01/13/2023,12/21/2021 Influenza Quadrivalent Adjuvanted 01/09/2020 Influenza, High Dose Seasona l, Preservative Free 02/15/2024,02/12/2021,01/17/2019,12/13 Influenza, IIV3, injectable 01/22/2016,0 12/23/2014,02/07/2014,12/21,12/18/2012,01/07/2012,12/29/2010 ,01/30/2010,12/06/2008,12/27/2006 Novel [id number], preservative-free 04/29/2009 Pfizer Covid-19 Vaccine 12+ 02/15/2024 Pneumococcal Conjugate PCV 13 01/24/2017 Pneumococcal Polysaccharide PPSV23 02/12/2021, RSV Bivalent 05/13/2023 Td (adult), unspecified 09/09/2004 Tdap 12/04/2024,09/09/2013,08/07/2013 Zoster, Recombinant 01/25/2022 Social History Tobacco Use [...] Recorded Patient Health Questionnaire-2 Score 0 05/13/2023 Internet Access Answer Date Recorded Internet Access Q1 Yes 06/13/2024 Internet Access Q2 Not on file 06/13/2024 Sex and Gender Information Value Date Recorded Sex Assigned at Male 01/25/2022 10:37 AM EDT Legal Sex Male 10:37 AM EDT Gender Identity Male 01/25/2022 10:37 AM EDT Sexual Orientation Straight 01/25/2022 10 :37 AM EDT Last Filed Vital Signs Vital Sign Reading Time Taken Comments Blood Pressure 132/78 12/04/2024 10:53 AM EDT Pulse 80 12/04/2024 10:40 AM EDT Temperature 36.8 C (98.2 F) 12/04/2024 10:40 AM EDT Respiratory Rate 12 12/04/2024 10:40 AM EDT Oxygen Saturation 95% 12/04/2024 10:40 AM EDT Inhaled Oxygen Concentration - - Weight 61.9 kg (136 lb 6.4 oz) 12/04/2024 10:40 AM EDT Height 180.3 cm (5' 11 ) 12/04/2024 10:40 AM EDT Body Mass Index 19.02 12/04/2024 10:40 AM EDT Plan of Treatment Health Maintenance Due Date Last Done Comments CT Colonography 1950 Colonoscopy 1950 Colorectal Cancer Screening 1950 FIT DNA/Cologuard 1950 FIT 1950 FOBT 1950 Sigmoidoscopy 1950 Zoster Vaccines (2 of 2) 03/22/2022 01/25/2022 Depression Screening 05/13/2024 05/13/2023, 05/13/19 COVID-19 Vaccine ( season) 2024 02/15/2024, 10/26/2021, 03/31/2021, Additional history exists Influenza Vaccine (#1) 2024 , 01/13/2023, 12/21/2021, Additional history exists Alcohol/Substance Use Screening 06/13/2025 06/13/2024 SDOH Screening 06/13/2025 06/13/2024 Tobacco Screening 12/04/2025 12/04/2024 Lipid Panel 06/19/2027 06/18/2022, 07/03/2021 DTaP/Tdap/Td Vaccines (4 - Td or Tdap) 12/04/2034 12/04/2024, 09/09/2013, 08/07/2013, Additional history exists Pneumococcal Vaccine: 50+ Years Completed 02/12/2021, 01/24/2017, 12/27/2006 Hepatitis C Screening Completed 07/03/2021 RSV Patients and Patients Aged 60 years or older Completed 05/13/2023 HIB Vaccines Aged Out No [...] Blood Pressure 132/78(2024 10:53 AM EDT) No Puia, Fernanda, JenD Procedures Procedure Name Priority Date/Time Associated Diagnosis Comments BASIC METABOLIC PANEL Routine 12/14/2024 8:13 AM EDT Essential hypertension LIPID PANEL, STANDARD Routine 06/18/2022 8:13 AM EDT Essential hypertension Malignant neoplasm of colon, unspecified part of colon (CMS/HCC) Chronic obstructive pulmonary disease, unspecified COPD type (CMS/HCC) High cholesterol ZZZ HISTORICAL HEPATITIS C AB W/REFL TO HCV RNA, QN, PCR Routine 07/03/2021 8:39 AM EDT from Last 3 Months or Most Recently Relevant to Health Maintenance Results * (ABNORMAL) Basic Metabolic Panel (12/14/2024 8:13 AM EDT) Sodium 144 135 - 145 mmol/L [facility] Potassium 3.6 3.3 - 5.1 mmol/L [facility] Chloride 103 96 - 108 mmol/L [facility] Carbon Dioxide 33(H) 22 - 29 mmol/L [facility] Anion Gap 12 12 - 20 [facility] Urea Nitrogen (BUN) 14 9 - 16 mg/dL [facility] Creatinine, Serum 0.68 0.5 - 1.4 mg/dL [facility] Estimated Glomerular Filt Rate >60 [facility] Comment:Chronic Kidney Disea se: Estimated GFR < 60 mL/min/1.48v6Aitdmr Kidney Disease: Estimated GFR < 15 mL/min/1.73m2 Glucose 100 60 - 115 mg/dL [facility] Calcium 9.2 8.4 - 10.2 mg/dL [facility] Blood Venous blood specimen / Unknown 12/14/2024 8:13 AM EDT 12/14/2024 11:19 AM EDT Subhash Foley MD LAB BLOOD ORDERABLES Final Resul t Performing Organization Address City/[facility]/ZIP Co de Phone Number [facility] [address] [place] [phone] * (ABNORMAL) Lipid Panel, Standard (06/18/2022 8:13 AM EDT) Cholesterol, Total 206(H) <200 mg/dL [facility] [place] [facility] HDL Cholesterol 68 > OR = 40 mg/dL [facility] [place] [facility] Triglycerides 99 <150 mg/dL [facility] [place] [facility] LDL Cholesterol 117(H) mg/dL (calc) [facility] [place] [facility] Comment: Reference range: <100 Desirable range <100 mg/dL for primary prevention; <70 mg/dL for patients with CHD or diabetic patients with > or = 2 CHD risk factors. LDL-C is now calculated using the Bindu calculation, which is a validated novel method providing better accuracy than the Friedewald equation in the estimation of LDL-C. Mac HAQ et al. KYLE. 2013;310(19): 1068-4693 (http://education.265 Network/faq/RDS794) Chol/HDLC Ratio 3.0 <5.0 (calc) [facility] [place] [facility] Non-HDL Cholesterol 138(H) <130 mg/dL (calc) [facility] [place] [facility] Comment: For patients with diabetes plus 1 major ASCVD risk factor, treating to a non-HDL-C goal of <100 mg/dL (LDL-C of <70 mg/dL) is considered a therapeutic option. Blood Venous blood specimen / Unknown 06/18/2022 8:13 AM EDT 06/18/2022 8:13 AM EDT Narrative [facility] - 06/18/2022 8:32 PM EDT FASTING:YES FASTING: YES Subhash Foley MD LAB BLOOD ORDERABLES Final Resul t Performing Organization Address City/[facility]/ZIP Co de Phone Number [facility] [address], [place] [address] [facility] [place] [facility] [address] [place] [phone] * HEPATITIS C AB W/REFL TO HCV RNA, QN, PCR (07/03/2021 8:39 AM EDT) HEPATITIS C ANTIBODY NON-REACT EVE NON-REACT EVE [facility] INDEX 0.06 <1.00 [facility] Comment: HCV antibody was non-reactive. There is no laboratory evidence of HCV infection. In most cases, no further action is required. However, if recent HCV exposure is suspected, a test for HCV RNA (test code 94299) is suggested. For additional information please refer to http://education.Pixonic/faq/JGE09b1 (This link is being provided for informational/ educational purposes only.) 07/03/2021 8:39 AM EDT us Subhash Name HISTORICAL/NON ORDERABLE LABS Fi nal Result Performing Organization Address City/State/[facility] Co de Phone Number [facility] [address] from Last 3 Months or Most Recently Relevant to Health Maintenance Insurance MEDICARE ADVANTAGE HMO Care Teams Train Examiner Relationship Specialty Start Date End Date Name, MD Subhash [address] [place] [address] PCP - General Family Medicine 04/23/21 Fernanda Reyes PharmD [address] [place] [id number] Pharmacist Internal Medicine 12/21/21
== END 2025-01-21 09:53 | disposition home or self-care (01) ==
LOC: HO.HPS 09:05
PROVIDERS: PCP Internal Medicine Geriatric Medicine; Visit Provider Nurse Practitioner Family
DX: J44.9 Chronic obstructive pulmonary disease, unspecified (principal); Z87.891 Personal history of nicotine dependence
CPT/HCPCS: 99214

== ENCOUNTER → 2025-01-21 09:04 | Outpatient (BNVA) | payer MEDICARE, SELFPAY | PROVIDERS: PCP Internal Medicine Geriatric Medicine; Visit Provider Nurse Practitioner Family | DX: J44.9 Chronic obstructive pulmonary disease, unspecified (principal); Z87.891 Personal history of nicotine dependence; R06.02 Shortness of breath; I10 Essential (primary) hypertension | CPT/HCPCS: 99212 ==